=== PATIENT | male | born 1960 | race Caucasian/White ===

== ENCOUNTER 2017-05-12 12:47 | Inpatient (IN) | payer MEDICARE, MEDICAID ==
[2017-05-12 13:27] LABS: % BASOPHILS 1.2 % (0.0-2.0); % EOSINOPHILS 0.7 % (0.0-5.0); % LYMPHOCYTES 26.1 % (20.0-50.0); % MONOCYTES 5.8 % (2.0-10.0); % NEUTROPHILS 66.2 % (40.0-80.0); HEMATOCRIT 40.7 % (41.0-60); HEMOGLOBIN 13.5 gm/dL (12-16); MEAN CORPUSCULAR HEMOGLOBIN 27.1 pg (26.0-30.0); MEAN CORPUSCULAR HGB CONC 33.1 pg (28.0-36.0); NEUTROPHILE ABSOLUTE 4.8 Th/cmm (1.8-8.0); PLATELET COUNT 307 Th/cmm (150-400); RED BLOOD COUNT 4.96 Mil/cmm (4.30-5.70); RED CELL DISTRIBUTION WIDTH 13.9 % (11.5-20.0); WHITE BLOOD COUNT 7.3 Th/cmm (4.8-10.8)
--- NOTE | 2017-05-12 13:30 | ED Physician Chart ---
ED Chief Complaint/HPI - Patient Information Date Seen:: 05/12/17 Time Seen:: 13:15 Chief Complaint:: agitation History of Present Illness:: location: general quality: agitation severity: moderate duration: few days context: SNF pt from [facility] with progressive schizophrenia. today and last few days has had increasing agitation. did no assault a worker/ employee. but has become very agitated. mother who is at bedside reports that he has been steadily getting worse. she took him to psychiatrist and was told that pt should be in SNF at all times, that pt is not safe to be coming home to her house on weekends. at least for the next several weeks until pt is medicated properly. SNF RN called PCP who advised send pt to ER for medical eval and psychiatric treatment pending medical clearance. on arrival pt with no medical complaint. no chest pain, no shortness of breath. mod factors: none assoc s/s: none hx from EMS, mother. Allergies:: Allergies Allergy/AdvReac Type Severity Reaction Status Date / Time calcium Allergy Verified 05/12/17 13:01 chlorpromazine Allergy Verified 05/12/17 13:02 fluphenazine Allergy Verified 05/12/17 13:02 haloperidol [From Haldol] Allergy Verified 05/12/17 13:02 sulfamethoxazole Allergy Verified 05/12/17 13:00 [From Bactrim] trimethoprim [From Bactrim] Allergy Verified 05/12/17 13:00 Vitals:: Vital Signs - 8 hr 05/12/17 13:03 Temp 97.6 F HR 100 RR 16 BP 118/86 O2 Sat % 97 Historian:: EMS, Other Review:: Nurse's Note Reviewed ED Review of Systems - Review of Systems General/Constitutional: No fever, No edema Skin: No bruising Cardio Vascular: No chest pain, No orthopnea, No edema Pulmonary: No cough, No wheezing GI: No vomiting, No diarrhea Psychiatric: Prior psych history, No depression Allergic/Immuno: No angioedema Neurological: No seizure ED Past Medical History - Past Medical History Past Medical History: PUD/GERD Family History: None Social History: Smoker, No Alcohol, No Drug Use, Single, Care Facility Surgical History: None Psychiatricy History: Schizophrenia Medication: Reviewed Family Medical History - Family Member Mother History Unknown: Yes ED Physical Exam - Physical Examination General/Constitutional: Awake, Well-developed, well-nourished, Alert, No distress, GCS 15, Non-toxic appearing, Ambulatory Head: Atraumatic Eyes: Lids, conjuctiva normal, PERRL Skin: Nl inspection, No skin lesions ENMT: External ears, nose nl, Nasal exam nl, Lips, teeth, gums nl Neck: Nontender, No nuchal rigidity Respiratory: Nl effort/Exclusion, Clear to Auscultation, No Wheeze/Rhonchi/Rales Cardio Vascular: RRR, No murmur, gallop, rubs, NL S1 S2 GI: No tenderness/rebounding/guarding, Normal BS's, Nondistended, No McBurney tenderness : No CVA tenderness Extremities: No tenderness or effusion Neuro/Psych: Alert/oriented, Normal sensory exam, Normal motor strength Misc: Normal back, No paraspinal tenderness ED Labs/Radiology/EKG Results - Lab Results Results: Laboratory Tests 05/12/17 05/12/17 13:18 13:18 WBC 7.3 RBC 4.96 Hgb 13.5 Hct 40.7 L MCV 82.0 MCH 27.1 MCHC Differential 33.1 RDW 13.9 Plt Count 307 MPV 7.0 Neutrophils % 66.2 Lymphocytes % 26.1 Monocytes % 5.8 Eosinophils % 0.7 Basophils % 1.2 Sodium 133 L Potassium 3.4 L Chloride 101 Carbon Dioxide 29.0 Anion Gap 6.4 L BUN 12 Creatinine 0.7 Est GFR ( Amer) > 60.0 Est GFR (Non-Af Amer) > 60.0 BUN/Creatinine Ratio 17.1 Glucose 111 Calcium 9.2 Total Bilirubin 0.4 AST 18 ALT 13 Alkaline Phosphatase 58 Total Protein 7.3 Albumin 4.1 L Globulin 3.2 Albumin/Globulin Ratio 1.3 Triglycerides 106 Cholesterol 191 LDL Cholesterol Direct 111 HDL Cholesterol 57 - EKG Interpretations Comments:: EKG NSR 87 normal axis left anterior fascicular block minimal ST elevation, anterior leads no acute ST elevation no acute ST depression no ectopy pt with no chest pain and no SOB abnormal EKG ER READ ED Assessment - Assessment General Assessment: pt in stable condition while in ER ED Septic Shock - . Is Septic Shock (SBP<90, OR Lactate>4 mmol\L) present?: No - <6hrs of presentation: Vital Signs: Vital Signs - 8 hr 05/12/17 13:03 Temp 97.6 F HR 100 RR 16 BP 118/86 O2 Sat % 97 ED Reassessment (Disposition) - Reassessment Reassessment:: medical decision making pt in stable condition clinically, no acute emergency medical condition to be medically cleared for admission to [facility]. Dr. Person has examined the patient at bedside in addition to Dr. Riggins. Reassessment Condition:: Unchanged - Diagnosis Diagnosis:: medical clearance for [facility] progressive agitation, in baseline schizophrenic patient - Patient Disposition Discharge/Transfer:: Acute Care w/in this hosp Admitted to:: [facility] Admitting Medical Physician:: Wade Person Admitting Psych Physician:: Gerard Hernandez Time:: 15:00 Condition at Disposition:: Stable
[2017-05-12 13:45] LABS: ALB/GLOB RATIO 1.3 (1.0-1.8); ALKALINE PHOSPHATASE 58 U/L (34-104); ANION GAP 6.4 (7.0-16.0); BILIRUBIN,TOTAL 0.4 mg/dL (0.3-1.0); BUN - UREA NITROGEN 12 mg/dL (7-25); BUN/CREATININE RATIO 17.1; CALCIUM SERUM 9.2 mg/dL (8.6-10.3); CHLORIDE 101 mEq/L (98-107); CHOLESTEROL 191 mg/dL (<200); CREATININE - SERUM 0.7 mg/dL (0.7-1.3); GLUCOSE 111 mg/dL; POTASSIUM SERUM 3.4 mEq/L (3.5-5.1); SGOT 18 U/L (13-39); SGPT/ALT 13 U/L (7-52); SODIUM SERUM 133 mEq/L (136-145); TRIGLYCERIDES 106 mg/dL (<150)
[2017-05-12] MEDS ORDERED: Potassium Chloride 20 mEq ER Tab PO ONE ×2 (14:18→15:51)
[2017-05-12 14:27] LABS: URINE BILIRUBIN NEGATIVE (NEGATIVE); URINE BLOOD NEGATIVE (NEGATIVE); URINE GLUCOSE (UA) NEGATIVE (NEGATIVE); URINE KETONE NEGATIVE (NEGATIVE); URINE PROTEIN NEGATIVE (NEGATIVE); URINE UROBILINOGEN 0.2 E.U./dL (0.2 - 1.0)
--- NOTE | 2017-05-12 15:24 | History & Physical ---
ADMIT DATE: 05/12/2017 CHIEF COMPLAINT: Medical evaluation and clearance on patient admitted to inpatient psych. HISTORY OF PRESENT ILLNESS: This is a 56-year-old male with history of peptic ulcer disease, GERD, hypertension, seizure, hypercholesterolemia, was admitted from nursing facility as secondary to agitation. The patient was cleared medically from the ER. PAST MEDICAL HISTORY: As mentioned in history present illness. PAST SURGICAL HISTORY: Denies surgeries in the past. ALLERGIES: CALCIUM, CHLORPROMAZINE, FLUPHENAZINE, HALDOL. MEDICATIONS: Aspirin, Coreg, ____, Colace, fenofibrate, Keppra, omeprazole, MiraLax, and Metamucil. FAMILY HISTORY: Noncontributory. SOCIAL HISTORY: The patient smokes, drinks whenever it is available. No intravenous drug use. The patient is unemployed, disabled. Unmarried, no children. REVIEW OF SYSTEMS: GENERAL: Complains of not feeling ill. According to nursing staff, the patient has been very agitated and not taking medication. HEENT: No blurred vision. LUNGS: ____ COPD. The patient is a chronic smoker. HEART: The patient with hypertension. Denies coronary artery disease. ABDOMEN: No nausea, vomiting, pain. GENITOURINARY: The patient denies increased frequency or dysuria. NEUROLOGIC: No headache, seizure. The patient apparently with seizure, no syncope. PSYCHIATRIC: Stable. PHYSICAL EXAMINATION: VITAL SIGNS: Blood pressure 118/86, respirations 16, pulse 100, temperature 97.6. GENERAL: Elderly male, appears chronically ill. NECK: Supple. No mass. LUNGS: Equal breath sounds, few rhonchi. HEART: Regular rate and rhythm without appreciable murmurs. ABDOMEN: Soft, globular. EXTREMITIES: Positive excoriations. NEUROLOGIC: Limited. LABORATORY DATA: WBC 7.3, hemoglobin 13, platelets 207. Sodium 132, potassium 3.4, BUN 12, creatinine 0.7, blood sugar was 111. Albumin 4.1. ASSESSMENT AND PLAN: GERD, hypertension, peptic ulcer disease, schizoaffective disorder, tachycardia, hypokalemia, hyponatremia, mild protein-calorie malnutrition with low albumin, constipation, seizure, hypercholesterolemia, ____. We will correct electrolyte abnormalities. The patient to continue on antiepileptic medication. Continue proton pump inhibitor. Continue on laxative. Continue with current care. We will continue following with you. [facility]# [id number]
[2017-05-12 16:13] LABS: URINE COLOR YELLOW
[2017-05-12 16:16] LABS: URINE BACTERIA MODERATE /hpf (NONE SEEN); URINE EPITHELIAL CELLS NONE SEEN /lpf (FEW); URINE RBC NONE SEEN /hpf (0-5); URINE WBC NONE SEEN /hpf (0-5)
[2017-05-12 17:29] VITALS: BP 128/92
[2017-05-13] MEDS: POLYETHYLENE GLYCOL 3350 17 GM PACK PO SCH ×2 (09:17→17:52)
[2017-05-13] MEDS: Fish Oil 1,000 MG SGL PO SCH (09:20)
[2017-05-13] MEDS: Pantoprazole 40 mg EC Tab PO SCH (09:20)
--- NOTE | 2017-05-13 10:18 | Psychosocial Evaluation ---
DATE OF SERVICE: 05/13/2017 IDENTIFYING DATA: The patient is a 57-year-old male, resident of [facility]. Information obtained by directly interviewing the patient as well as reviewing the papers. JUSTIFICATION FOR HOSPITALIZATION: The patient is admitted here on a 5150 for being gravely disabled. CHIEF COMPLAINT: "I don't know, people are bothering me." HISTORY OF PRESENT ILLNESS: This is one of multiple psychiatric hospitalizations for this patient who has been diagnosed to have schizoaffective disorder and has been maintained on Clozaril. The patient also has a history of peptic ulcer disease, hypertension, seizure disorder, hypercholesterolemia and the patient has been out of control and has been testing the limits and getting easily agitated and getting into other people's rooms and hence the patient has been referred over here for further stabilization. The patient is admitted here on a 5150 for gravely disability. PAST PSYCHIATRIC HISTORY: Please refer to the above. MEDICAL HISTORY: Requested by Dr. Person. SUBSTANCE ABUSE HISTORY: None. PHYSICAL OR SEXUAL ABUSE HISTORY: None at this time. SOCIAL HISTORY: The patient is a resident of [facility]. Medical history is significant for hypercholesterolemia, seizure disorder and hypertension. ALLERGIES: The patient is reported to be allergic to CHLORPROMAZINE, FLUPHENAZINE and HALDOL. STRENGTH AND ASSETS: The patient is motivated. MENTAL STATUS EXAMINATION: The patient is a 57-year-old, looking his stated age, thin built, superficially cooperative. Eye contact is fair. Mood is irritable. Affect is constricted. The patient is pacing most of the time on the unit. Insight and judgment at this time are noted to be impaired. Impulse control is noted to be poor. The patient is paranoid and is responding to internal stimuli and the patient is not able to contract for safety at this time. The patient is getting easily upset when I am asking the questions. The patient denies any command hallucinations. No visual hallucinations are noted. The patient is alert and awake. Attention span and concentration are noted to be fair at this time. DIAGNOSTIC IMPRESSION: 1. Schizoaffective disorder. AXIS II: None. AXIS III: As per Dr. Person. IMMEDIATE TREATMENT PLAN: The patient is going to be observed on inpatient unit, provided with supportive psychotherapy. The patient is going to be closely monitored. Once stabilized, the patient is going to be discharged to self. While the patient is in the hospital, he is going to be continued on his Clozaril, which he has been taking at 100 mg at bedtime and patient is going to be looked into the need for the Depakote to contain mood swings. [facility]# [id number]
--- NOTE | 2017-05-13 12:14 | Internal Medicine Prog Note ---
Internal Medicine Subjective - Subjective Service Date: 05/13/17 Patient seen and examined:: with staff Patient is:: awake, verbal, ambulating, confused Per staff patient has:: tolerating meds Internal Medicine Objective - Results Result Diagrams: 05/12/17 13:18 05/12/17 13:18 Recent Labs: Laboratory Last Values WBC 7.3 Th/cmm (4.8-10.8) 05/12/17 13:18 RBC 4.96 Mil/cmm (4.30-5.70) 05/12/17 13:18 Hgb 13.5 gm/dL (12-16) 05/12/17 13:18 Hct 40.7 % (41.0-60) L 05/12/17 13:18 MCV 82.0 fl (80-99) 05/12/17 13:18 MCH 27.1 pg (26.0-30.0) 05/12/17 13:18 MCHC Differential 33.1 pg (28.0-36.0) 05/12/17 13:18 RDW 13.9 % (11.5-20.0) 05/12/17 13:18 Plt Count 307 Th/cmm (150-400) 05/12/17 13:18 MPV 7.0 fl 05/12/17 13:18 Neutrophils % 66.2 % (40.0-80.0) 05/12/17 13:18 Lymphocytes % 26.1 % (20.0-50.0) 05/12/17 13:18 Monocytes % 5.8 % (2.0-10.0) 05/12/17 13:18 Eosinophils % 0.7 % (0.0-5.0) 05/12/17 13:18 Basophils % 1.2 % (0.0-2.0) 05/12/17 13:18 Sodium 133 mEq/L (136-145) L 05/12/17 13:18 Potassium 3.4 mEq/L (3.5-5.1) L 05/12/17 13:18 Chloride 101 mEq/L (98-107) 05/12/17 13:18 Carbon Dioxide 29.0 mEq/L (21.0-31.0) 05/12/17 13:18 Anion Gap 6.4 (7.0-16.0) L 05/12/17 13:18 BUN 12 mg/dL (7-25) 05/12/17 13:18 Creatinine 0.7 mg/dL (0.7-1.3) 05/12/17 13:18 Est GFR ( Amer) > 60.0 ml/min (>90) 05/12/17 13:18 Est GFR (Non-Af Amer) > 60.0 ml/min 05/12/17 13:18 BUN/Creatinine Ratio 17.1 05/12/17 13:18 Glucose 111 mg/dL 05/12/17 13:18 Calcium 9.2 mg/dL (8.6-10.3) 05/12/17 13:18 Total Bilirubin 0.4 mg/dL (0.3-1.0) 05/12/17 13:18 AST 18 U/L (13-39) 05/12/17 13:18 ALT 13 U/L (7-52) 05/12/17 13:18 Alkaline Phosphatase 58 U/L (34-104) 05/12/17 13:18 Total Protein 7.3 gm/dL (6.0-8.3) 05/12/17 13:18 Albumin 4.1 gm/dL (4.2-5.5) L 05/12/17 13:18 Globulin 3.2 gm/dL 05/12/17 13:18 Albumin/Globulin Ratio 1.3 (1.0-1.8) 05/12/17 13:18 Triglycerides 106 mg/dL (<150) 05/12/17 13:18 Cholesterol 191 mg/dL (<200) 05/12/17 13:18 LDL Cholesterol Direct 111 mg/dL (75-193) 05/12/17 13:18 HDL Cholesterol 57 mg/dL (23-92) 05/12/17 13:18 TSH 0.64 uIU/ml (0.34-5.60) 05/12/17 13:18 Urine Source CLEAN C 05/12/17 14:00 Urine Color YELLOW 05/12/17 14:00 Urine Clarity HAZY (CLEAR) 05/12/17 14:00 Urine pH 8.0 (4.6 - 8.0) 05/12/17 14:00 Ur Specific [place] 1.010 (1.005-1.030) 05/12/17 14:00 Urine Protein NEGATIVE mg/dL (NEGATIVE) 05/12/17 14:00 Urine Glucose (UA) NEGATIVE mg/dL (NEGATIVE) 05/12/17 14:00 Urine Ketones NEGATIVE mg/dL (NEGATIVE) 05/12/17 14:00 Urine Blood NEGATIVE (NEGATIVE) 05/12/17 14:00 Urine Nitrate POSITIVE (NEGATIVE) H 05/12/17 14:00 Urine Bilirubin NEGATIVE (NEGATIVE) 05/12/17 14:00 Urine Urobilinogen 0.2 E.U./dL (0.2 - 1.0) 05/12/17 14:00 Ur Leukocyte Esterase NEGATIVE (NEGATIVE) 05/12/17 14:00 Urine RBC NONE SEEN /hpf (0-5) 05/12/17 14:00 Urine WBC NONE SEEN /hpf (0-5) 05/12/17 14:00 Ur Epithelial Cells NONE SEEN /lpf (FEW) 05/12/17 14:00 Urine Bacteria MODERATE /hpf (NONE SEEN) 05/12/17 14:00 - Physical Exam Vitals and I&O: Vital Signs Temp 98.2 F 05/13/17 06:23 Pulse 88 05/13/17 09:20 Resp 20 05/13/17 06:23 BP 140/77 05/13/17 09:20 Pulse Ox 100 05/13/17 06:23 Intake & Output 05/12/17 05/13/17 05/13/17 18:59 06:59 18:59 Intake Total 480 Balance 480 Intake: Oral 480 Other: # Voids 3 # Bowel Movements 0 Active Medications: Current Medications Aspirin (Ecotrin) 81 mg PO DAILY [facility] Stop: 07/12/17 08:59 Last Admin: 05/13/17 09:19 Dose: 81 mg Carvedilol (Coreg) 3.125 mg PO BID [facility] Stop: 07/11/17 16:59 Last Admin: 05/13/17 09:20 Dose: 3.125 mg Clozapine (Clozaril) 400 mg PO [facility] PRN Reason: Protocol Stop: 07/11/17 20:59 Docusate Sodium (Colace) 200 mg PO BID [facility] Stop: 07/11/17 16:59 Last Admin: 05/13/17 09:10 Dose: 200 mg Fenofibrate (Tricor) 134 mg PO [facility] Stop: 07/12/17 20:59 Fish Oil ([place] 3) 1,000 mg PO DAILY [facility] Stop: 07/12/17 08:59 Last Admin: 05/13/17 09:20 Dose: 1,000 mg Levetiracetam (Keppra) 500 mg PO Q12H [facility] Stop: 07/11/17 14:29 Last Admin: 05/12/17 15:53 Dose: 500 mg Pantoprazole Sodium (Protonix) 40 mg PO DAILY [facility] Stop: 07/12/17 08:59 Last Admin: 05/13/17 09:20 Dose: 40 mg Polyethylene Glycol (Miralax) 17 gm PO BID [facility] Stop: 07/11/17 16:59 Last Admin: 05/13/17 09:17 Dose: 17 gm Psyllium Hydrophilic Mucilloid (Metamucil) 1 pkt PO BID [facility] Stop: 07/11/17 16:59 Last Admin: 05/13/17 09:17 Dose: 1 pkt General: alert HEENT: NC/AT, PERRLA Neck: Supple Lungs: CTAB Cardiovascular: RRR, Normal S1, Normal S2, without murmur Abdomen: soft, non-tender, non-distended, positive bowel sound Extremities: excoriation Neurological: alert, other Internal Medicine Assmt/Plan - Assessment Assessment: GERD HTN PUD SCHIZOAFFECTIVE DISORDER TACHYCARDIA HYPOKALEMIA HYPONATREMIA MILD PROTEIN CALORIE MALNUTRITION WITH LOW ALBUMIN CONSTIPATION SEIZURE HYPERCHOLESTEREMIA - Plan Plan: seizure precautions fall precautions continue ppi continue current plan of care
[2017-05-13] MEDS: Fenofibrate, Micronized 134 mg Cap PO SCH (20:23)
[2017-05-14] MEDS: Fish Oil 1,000 MG SGL PO SCH (08:42)
[2017-05-14] MEDS: Pantoprazole 40 mg EC Tab PO SCH (08:43)
[2017-05-14] MEDS: POLYETHYLENE GLYCOL 3350 17 GM PACK PO SCH ×2 (08:44→18:00)
--- NOTE | 2017-05-14 12:18 | Internal Medicine Prog Note ---
Internal Medicine Subjective - Subjective Service Date: 05/14/17 Patient is:: awake, verbal, ambulating, confused Per staff patient has:: tolerating meds Internal Medicine Objective - Results Result Diagrams: 05/12/17 13:18 05/12/17 13:18 Recent Labs: Laboratory Last Values WBC 7.3 Th/cmm (4.8-10.8) 05/12/17 13:18 RBC 4.96 Mil/cmm (4.30-5.70) 05/12/17 13:18 Hgb 13.5 gm/dL (12-16) 05/12/17 13:18 Hct 40.7 % (41.0-60) L 05/12/17 13:18 MCV 82.0 fl (80-99) 05/12/17 13:18 MCH 27.1 pg (26.0-30.0) 05/12/17 13:18 MCHC Differential 33.1 pg (28.0-36.0) 05/12/17 13:18 RDW 13.9 % (11.5-20.0) 05/12/17 13:18 Plt Count 307 Th/cmm (150-400) 05/12/17 13:18 MPV 7.0 fl 05/12/17 13:18 Neutrophils % 66.2 % (40.0-80.0) 05/12/17 13:18 Lymphocytes % 26.1 % (20.0-50.0) 05/12/17 13:18 Monocytes % 5.8 % (2.0-10.0) 05/12/17 13:18 Eosinophils % 0.7 % (0.0-5.0) 05/12/17 13:18 Basophils % 1.2 % (0.0-2.0) 05/12/17 13:18 Sodium 133 mEq/L (136-145) L 05/12/17 13:18 Potassium 3.4 mEq/L (3.5-5.1) L 05/12/17 13:18 Chloride 101 mEq/L (98-107) 05/12/17 13:18 Carbon Dioxide 29.0 mEq/L (21.0-31.0) 05/12/17 13:18 Anion Gap 6.4 (7.0-16.0) L 05/12/17 13:18 BUN 12 mg/dL (7-25) 05/12/17 13:18 Creatinine 0.7 mg/dL (0.7-1.3) 05/12/17 13:18 Est GFR ( Amer) > 60.0 ml/min (>90) 05/12/17 13:18 Est GFR (Non-Af Amer) > 60.0 ml/min 05/12/17 13:18 BUN/Creatinine Ratio 17.1 05/12/17 13:18 Glucose 111 mg/dL 05/12/17 13:18 Calcium 9.2 mg/dL (8.6-10.3) 05/12/17 13:18 Total Bilirubin 0.4 mg/dL (0.3-1.0) 05/12/17 13:18 AST 18 U/L (13-39) 05/12/17 13:18 ALT 13 U/L (7-52) 05/12/17 13:18 Alkaline Phosphatase 58 U/L (34-104) 05/12/17 13:18 Total Protein 7.3 gm/dL (6.0-8.3) 05/12/17 13:18 Albumin 4.1 gm/dL (4.2-5.5) L 05/12/17 13:18 Globulin 3.2 gm/dL 05/12/17 13:18 Albumin/Globulin Ratio 1.3 (1.0-1.8) 05/12/17 13:18 Triglycerides 106 mg/dL (<150) 05/12/17 13:18 Cholesterol 191 mg/dL (<200) 05/12/17 13:18 LDL Cholesterol Direct 111 mg/dL (75-193) 05/12/17 13:18 HDL Cholesterol 57 mg/dL (23-92) 05/12/17 13:18 TSH 0.64 uIU/ml (0.34-5.60) 05/12/17 13:18 Urine Source CLEAN C 05/12/17 14:00 Urine Color YELLOW 05/12/17 14:00 Urine Clarity HAZY (CLEAR) 05/12/17 14:00 Urine pH 8.0 (4.6 - 8.0) 05/12/17 14:00 Ur Specific [place] 1.010 (1.005-1.030) 05/12/17 14:00 Urine Protein NEGATIVE mg/dL (NEGATIVE) 05/12/17 14:00 Urine Glucose (UA) NEGATIVE mg/dL (NEGATIVE) 05/12/17 14:00 Urine Ketones NEGATIVE mg/dL (NEGATIVE) 05/12/17 14:00 Urine Blood NEGATIVE (NEGATIVE) 05/12/17 14:00 Urine Nitrate POSITIVE (NEGATIVE) H 05/12/17 14:00 Urine Bilirubin NEGATIVE (NEGATIVE) 05/12/17 14:00 Urine Urobilinogen 0.2 E.U./dL (0.2 - 1.0) 05/12/17 14:00 Ur Leukocyte Esterase NEGATIVE (NEGATIVE) 05/12/17 14:00 Urine RBC NONE SEEN /hpf (0-5) 05/12/17 14:00 Urine WBC NONE SEEN /hpf (0-5) 05/12/17 14:00 Ur Epithelial Cells NONE SEEN /lpf (FEW) 05/12/17 14:00 Urine Bacteria MODERATE /hpf (NONE SEEN) 05/12/17 14:00 RPR NONREACTIVE (NONREACTIVE) 05/12/17 13:18 - Physical Exam Vitals and I&O: Vital Signs Temp 98.5 F 05/14/17 07:04 Pulse 61 05/14/17 08:43 Resp 20 05/14/17 07:04 BP 122/79 05/14/17 08:43 Pulse Ox 100 05/14/17 07:04 Intake & Output 05/13/17 05/14/17 05/14/17 18:59 06:59 18:59 Intake Total 2400 120 Balance 2400 120 Intake: Oral 2400 120 Other: # Voids 4 3 # Bowel Movements 0 Active Medications: Current Medications Aspirin (Ecotrin) 81 mg PO DAILY [facility] Stop: 07/12/17 08:59 Last Admin: 05/14/17 08:43 Dose: 81 mg Carvedilol (Coreg) 3.125 mg PO BID [facility] Stop: 07/11/17 16:59 Last Admin: 05/14/17 08:43 Dose: 3.125 mg Clozapine (Clozaril) 400 mg PO [facility] PRN Reason: Protocol Stop: 07/11/17 20:59 Last Admin: 05/13/17 20:23 Dose: 400 mg Docusate Sodium (Colace) 200 mg PO BID [facility] Stop: 07/11/17 16:59 Last Admin: 05/14/17 08:43 Dose: 200 mg Fenofibrate (Tricor) 134 mg PO HS [facility] Stop: 07/12/17 20:59 Last Admin: 05/13/17 20:23 Dose: 134 mg Fish Oil ([place] 3) 1,000 mg PO DAILY [facility] Stop: 07/12/17 08:59 Last Admin: 05/14/17 08:42 Dose: 1,000 mg Levetiracetam (Keppra) 500 mg PO Q12H [facility] Stop: 07/11/17 14:29 Last Admin: 05/13/17 17:52 Dose: Not Given Lorazepam (Ativan) 1 mg PO Q6HR PRN; Protocol PRN Reason: Anxiety Stop: 07/12/17 13:15 Last Admin: 05/13/17 21:40 Dose: 1 mg Pantoprazole Sodium (Protonix) 40 mg PO DAILY [facility] Stop: 07/12/17 08:59 Last Admin: 05/14/17 08:43 Dose: 40 mg Polyethylene Glycol (Miralax) 17 gm PO BID [facility] Stop: 07/11/17 16:59 Last Admin: 05/14/17 08:44 Dose: 17 gm Psyllium Hydrophilic Mucilloid (Metamucil) 1 pkt PO BID [facility] Stop: 07/11/17 16:59 Last Admin: 05/14/17 08:44 Dose: 1 pkt Zolpidem Tartrate (Ambien) 5 mg PO HS PRN PRN Reason: Insomnia Stop: 07/12/17 17:54 General: alert HEENT: NC/AT, PERRLA Neck: Supple Lungs: CTAB Cardiovascular: RRR, Normal S1, Normal S2, without murmur Abdomen: soft, non-tender, non-distended, positive bowel sound Extremities: excoriation Neurological: alert, other Internal Medicine Assmt/Plan - Assessment Assessment: GERD HTN PUD SCHIZOAFFECTIVE DISORDER TACHYCARDIA HYPOKALEMIA HYPONATREMIA MILD PROTEIN CALORIE MALNUTRITION WITH LOW ALBUMIN CONSTIPATION SEIZURE HYPERCHOLESTEREMIA - Plan Plan: seizure precautions fall precautions continue ppi continue current plan of care
--- NOTE | 2017-05-14 20:14 | Progress Notes ---
DATE: 05/14/2017 SUBJECTIVE: Staff was spoken to. The patient is interviewed. Mood is noted to be irritable. Affect is constricted. The patient is pacing on the unit. Insight and judgment at this time are noted to be still impaired. Continues to be very irritable, angry, and agitated. Needs to be redirected constantly. The patient is currently on 400 mg of the Clozaril and has been able to tolerate the medication. ASSESSMENT: The patient is still grossly psychotic. PLAN: To continue the patient with the current medications. I encouraged the patient to verbalize the concerns rather than to act out. JOB# [id number]
[2017-05-14] MEDS: Fenofibrate, Micronized 134 mg Cap PO SCH (21:13)
[2017-05-15] MEDS: POLYETHYLENE GLYCOL 3350 17 GM PACK PO SCH ×2 (08:55→16:23)
[2017-05-15] MEDS: Pantoprazole 40 mg EC Tab PO SCH (08:55)
[2017-05-15] MEDS: Fish Oil 1,000 MG SGL PO SCH (08:55)
--- NOTE | 2017-05-15 12:45 | Internal Medicine Prog Note ---
Internal Medicine Subjective - Subjective Service Date: 05/15/17 Patient is:: awake, verbal, ambulating, confused Per staff patient has:: tolerating meds Internal Medicine Objective - Results Result Diagrams: 05/12/17 13:18 05/12/17 13:18 Recent Labs: Laboratory Last Values WBC 7.3 Th/cmm (4.8-10.8) 05/12/17 13:18 RBC 4.96 Mil/cmm (4.30-5.70) 05/12/17 13:18 Hgb 13.5 gm/dL (12-16) 05/12/17 13:18 Hct 40.7 % (41.0-60) L 05/12/17 13:18 MCV 82.0 fl (80-99) 05/12/17 13:18 MCH 27.1 pg (26.0-30.0) 05/12/17 13:18 MCHC Differential 33.1 pg (28.0-36.0) 05/12/17 13:18 RDW 13.9 % (11.5-20.0) 05/12/17 13:18 Plt Count 307 Th/cmm (150-400) 05/12/17 13:18 MPV 7.0 fl 05/12/17 13:18 Neutrophils % 66.2 % (40.0-80.0) 05/12/17 13:18 Lymphocytes % 26.1 % (20.0-50.0) 05/12/17 13:18 Monocytes % 5.8 % (2.0-10.0) 05/12/17 13:18 Eosinophils % 0.7 % (0.0-5.0) 05/12/17 13:18 Basophils % 1.2 % (0.0-2.0) 05/12/17 13:18 Sodium 133 mEq/L (136-145) L 05/12/17 13:18 Potassium 3.4 mEq/L (3.5-5.1) L 05/12/17 13:18 Chloride 101 mEq/L (98-107) 05/12/17 13:18 Carbon Dioxide 29.0 mEq/L (21.0-31.0) 05/12/17 13:18 Anion Gap 6.4 (7.0-16.0) L 05/12/17 13:18 BUN 12 mg/dL (7-25) 05/12/17 13:18 Creatinine 0.7 mg/dL (0.7-1.3) 05/12/17 13:18 Est GFR ( Amer) > 60.0 ml/min (>90) 05/12/17 13:18 Est GFR (Non-Af Amer) > 60.0 ml/min 05/12/17 13:18 BUN/Creatinine Ratio 17.1 05/12/17 13:18 Glucose 111 mg/dL 05/12/17 13:18 Calcium 9.2 mg/dL (8.6-10.3) 05/12/17 13:18 Total Bilirubin 0.4 mg/dL (0.3-1.0) 05/12/17 13:18 AST 18 U/L (13-39) 05/12/17 13:18 ALT 13 U/L (7-52) 05/12/17 13:18 Alkaline Phosphatase 58 U/L (34-104) 05/12/17 13:18 Total Protein 7.3 gm/dL (6.0-8.3) 05/12/17 13:18 Albumin 4.1 gm/dL (4.2-5.5) L 05/12/17 13:18 Globulin 3.2 gm/dL 05/12/17 13:18 Albumin/Globulin Ratio 1.3 (1.0-1.8) 05/12/17 13:18 Triglycerides 106 mg/dL (<150) 05/12/17 13:18 Cholesterol 191 mg/dL (<200) 05/12/17 13:18 LDL Cholesterol Direct 111 mg/dL (75-193) 05/12/17 13:18 HDL Cholesterol 57 mg/dL (23-92) 05/12/17 13:18 TSH 0.64 uIU/ml (0.34-5.60) 05/12/17 13:18 Urine Source CLEAN C 05/12/17 14:00 Urine Color YELLOW 05/12/17 14:00 Urine Clarity HAZY (CLEAR) 05/12/17 14:00 Urine pH 8.0 (4.6 - 8.0) 05/12/17 14:00 Ur Specific [place] 1.010 (1.005-1.030) 05/12/17 14:00 Urine Protein NEGATIVE mg/dL (NEGATIVE) 05/12/17 14:00 Urine Glucose (UA) NEGATIVE mg/dL (NEGATIVE) 05/12/17 14:00 Urine Ketones NEGATIVE mg/dL (NEGATIVE) 05/12/17 14:00 Urine Blood NEGATIVE (NEGATIVE) 05/12/17 14:00 Urine Nitrate POSITIVE (NEGATIVE) H 05/12/17 14:00 Urine Bilirubin NEGATIVE (NEGATIVE) 05/12/17 14:00 Urine Urobilinogen 0.2 E.U./dL (0.2 - 1.0) 05/12/17 14:00 Ur Leukocyte Esterase NEGATIVE (NEGATIVE) 05/12/17 14:00 Urine RBC NONE SEEN /hpf (0-5) 05/12/17 14:00 Urine WBC NONE SEEN /hpf (0-5) 05/12/17 14:00 Ur Epithelial Cells NONE SEEN /lpf (FEW) 05/12/17 14:00 Urine Bacteria MODERATE /hpf (NONE SEEN) 05/12/17 14:00 RPR NONREACTIVE (NONREACTIVE) 05/12/17 13:18 - Physical Exam Vitals and I&O: Vital Signs Temp 97.5 F 05/15/17 06:47 Pulse 82 05/15/17 08:56 Resp 19 05/15/17 06:47 BP 111/67 05/15/17 08:56 Pulse Ox 98 05/15/17 06:47 Intake & Output 05/14/17 05/15/17 05/15/17 18:59 06:59 18:59 Intake Total 3720 120 Balance 3720 120 Intake: Oral 3720 120 Other: # Voids 4 3 # Bowel Movements 0 Active Medications: Current Medications Aspirin (Ecotrin) 81 mg PO DAILY [facility] Stop: 07/12/17 08:59 Last Admin: 05/15/17 08:55 Dose: 81 mg Carvedilol (Coreg) 3.125 mg PO BID [facility] Stop: 07/11/17 16:59 Last Admin: 05/15/17 08:56 Dose: 3.125 mg Clozapine (Clozaril) 400 mg PO [facility] PRN Reason: Protocol Stop: 07/11/17 20:59 Last Admin: 05/14/17 21:13 Dose: 400 mg Docusate Sodium (Colace) 200 mg PO BID [facility] Stop: 07/11/17 16:59 Last Admin: 05/15/17 08:55 Dose: 200 mg Fenofibrate (Tricor) 134 mg PO HS [facility] Stop: 07/12/17 20:59 Last Admin: 05/14/17 21:13 Dose: 134 mg Fish Oil ([place] 3) 1,000 mg PO DAILY [facility] Stop: 07/12/17 08:59 Last Admin: 05/15/17 08:55 Dose: 1,000 mg Levetiracetam (Keppra) 500 mg PO Q12H [facility] Stop: 07/14/17 08:59 Last Admin: 05/15/17 10:53 Dose: Not Given Lorazepam (Ativan) 1 mg PO Q6HR PRN; Protocol PRN Reason: Anxiety Stop: 07/12/17 13:15 Last Admin: 05/14/17 14:42 Dose: 1 mg Pantoprazole Sodium (Protonix) 40 mg PO DAILY [facility] Stop: 07/12/17 08:59 Last Admin: 05/15/17 08:55 Dose: 40 mg Polyethylene Glycol (Miralax) 17 gm PO BID [facility] Stop: 07/11/17 16:59 Last Admin: 05/15/17 08:55 Dose: 17 gm Psyllium Hydrophilic Mucilloid (Metamucil) 1 pkt PO BID [facility] Stop: 07/11/17 16:59 Last Admin: 05/15/17 08:55 Dose: 1 pkt Zolpidem Tartrate (Ambien) 5 mg PO HS PRN PRN Reason: Insomnia Stop: 07/12/17 17:54 Last Admin: 05/14/17 21:13 Dose: 5 mg General: alert HEENT: NC/AT, PERRLA Neck: Supple Lungs: CTAB Cardiovascular: RRR, Normal S1, Normal S2, without murmur Abdomen: soft, non-tender, non-distended, positive bowel sound Extremities: excoriation Neurological: alert, other Internal Medicine Assmt/Plan - Assessment Assessment: GERD HTN PUD SCHIZOAFFECTIVE DISORDER TACHYCARDIA HYPOKALEMIA HYPONATREMIA MILD PROTEIN CALORIE MALNUTRITION WITH LOW ALBUMIN CONSTIPATION SEIZURE HYPERCHOLESTEREMIA - Plan Plan: seizure precautions fall precautions continue ppi continue current plan of care
[2017-05-15] MEDS: Fenofibrate, Micronized 134 mg Cap PO SCH (20:59)
--- NOTE | 2017-05-15 23:25 | Progress Notes ---
DATE: 05/15/2017 PSYCHIATRIC PROGRESS NOTE SUBJECTIVE: Staff was spoken to. The patient is interviewed. Mood is noted to be irritable. Affect is constricted. The patient is getting into others' rooms and has been trying to the clog the toilets. The patient's behavior is very disruptive at this time. Insight and judgment at this time are noted to be still impaired. Impulse control is noted to be poor. The patient has not been able to contract for safety. ASSESSMENT: The patient is still grossly psychotic. The patient is going to be closely monitored and encouraged to participate in the groups and verbalize the concerns. JOB# [id number]
[2017-05-16] MEDS: Fish Oil 1,000 MG SGL PO SCH (08:22)
[2017-05-16] MEDS: POLYETHYLENE GLYCOL 3350 17 GM PACK PO SCH ×2 (08:22→16:26)
[2017-05-16] MEDS: Pantoprazole 40 mg EC Tab PO SCH (08:23)
--- NOTE | 2017-05-16 13:27 | Internal Medicine Prog Note ---
Internal Medicine Subjective - Subjective Service Date: 05/16/17 Patient is:: awake, verbal, ambulating, confused Per staff patient has:: tolerating meds Internal Medicine Objective - Results Result Diagrams: 05/12/17 13:18 05/12/17 13:18 Recent Labs: Laboratory Last Values WBC 7.3 Th/cmm (4.8-10.8) 05/12/17 13:18 RBC 4.96 Mil/cmm (4.30-5.70) 05/12/17 13:18 Hgb 13.5 gm/dL (12-16) 05/12/17 13:18 Hct 40.7 % (41.0-60) L 05/12/17 13:18 MCV 82.0 fl (80-99) 05/12/17 13:18 MCH 27.1 pg (26.0-30.0) 05/12/17 13:18 MCHC Differential 33.1 pg (28.0-36.0) 05/12/17 13:18 RDW 13.9 % (11.5-20.0) 05/12/17 13:18 Plt Count 307 Th/cmm (150-400) 05/12/17 13:18 MPV 7.0 fl 05/12/17 13:18 Neutrophils % 66.2 % (40.0-80.0) 05/12/17 13:18 Lymphocytes % 26.1 % (20.0-50.0) 05/12/17 13:18 Monocytes % 5.8 % (2.0-10.0) 05/12/17 13:18 Eosinophils % 0.7 % (0.0-5.0) 05/12/17 13:18 Basophils % 1.2 % (0.0-2.0) 05/12/17 13:18 Sodium 133 mEq/L (136-145) L 05/12/17 13:18 Potassium 3.4 mEq/L (3.5-5.1) L 05/12/17 13:18 Chloride 101 mEq/L (98-107) 05/12/17 13:18 Carbon Dioxide 29.0 mEq/L (21.0-31.0) 05/12/17 13:18 Anion Gap 6.4 (7.0-16.0) L 05/12/17 13:18 BUN 12 mg/dL (7-25) 05/12/17 13:18 Creatinine 0.7 mg/dL (0.7-1.3) 05/12/17 13:18 Est GFR ( Amer) > 60.0 ml/min (>90) 05/12/17 13:18 Est GFR (Non-Af Amer) > 60.0 ml/min 05/12/17 13:18 BUN/Creatinine Ratio 17.1 05/12/17 13:18 Glucose 111 mg/dL 05/12/17 13:18 Calcium 9.2 mg/dL (8.6-10.3) 05/12/17 13:18 Total Bilirubin 0.4 mg/dL (0.3-1.0) 05/12/17 13:18 AST 18 U/L (13-39) 05/12/17 13:18 ALT 13 U/L (7-52) 05/12/17 13:18 Alkaline Phosphatase 58 U/L (34-104) 05/12/17 13:18 Total Protein 7.3 gm/dL (6.0-8.3) 05/12/17 13:18 Albumin 4.1 gm/dL (4.2-5.5) L 05/12/17 13:18 Globulin 3.2 gm/dL 05/12/17 13:18 Albumin/Globulin Ratio 1.3 (1.0-1.8) 05/12/17 13:18 Triglycerides 106 mg/dL (<150) 05/12/17 13:18 Cholesterol 191 mg/dL (<200) 05/12/17 13:18 LDL Cholesterol Direct 111 mg/dL (75-193) 05/12/17 13:18 HDL Cholesterol 57 mg/dL (23-92) 05/12/17 13:18 TSH 0.64 uIU/ml (0.34-5.60) 05/12/17 13:18 Urine Source CLEAN C 05/12/17 14:00 Urine Color YELLOW 05/12/17 14:00 Urine Clarity HAZY (CLEAR) 05/12/17 14:00 Urine pH 8.0 (4.6 - 8.0) 05/12/17 14:00 Ur Specific [place] 1.010 (1.005-1.030) 05/12/17 14:00 Urine Protein NEGATIVE mg/dL (NEGATIVE) 05/12/17 14:00 Urine Glucose (UA) NEGATIVE mg/dL (NEGATIVE) 05/12/17 14:00 Urine Ketones NEGATIVE mg/dL (NEGATIVE) 05/12/17 14:00 Urine Blood NEGATIVE (NEGATIVE) 05/12/17 14:00 Urine Nitrate POSITIVE (NEGATIVE) H 05/12/17 14:00 Urine Bilirubin NEGATIVE (NEGATIVE) 05/12/17 14:00 Urine Urobilinogen 0.2 E.U./dL (0.2 - 1.0) 05/12/17 14:00 Ur Leukocyte Esterase NEGATIVE (NEGATIVE) 05/12/17 14:00 Urine RBC NONE SEEN /hpf (0-5) 05/12/17 14:00 Urine WBC NONE SEEN /hpf (0-5) 05/12/17 14:00 Ur Epithelial Cells NONE SEEN /lpf (FEW) 05/12/17 14:00 Urine Bacteria MODERATE /hpf (NONE SEEN) 05/12/17 14:00 RPR NONREACTIVE (NONREACTIVE) 05/12/17 13:18 - Physical Exam Vitals and I&O: Vital Signs Temp 98.2 F 05/16/17 06:42 Pulse 79 05/16/17 08:23 Resp 20 05/16/17 06:42 BP 120/77 05/16/17 08:23 Pulse Ox 98 05/16/17 06:42 Intake & Output 05/15/17 05/16/17 05/16/17 18:59 06:59 18:59 Intake Total 1000 120 Balance 1000 120 Intake: Oral 1000 120 Other: # Voids 3 3 Active Medications: Current Medications Aspirin (Ecotrin) 81 mg PO DAILY [facility] Stop: 07/12/17 08:59 Last Admin: 05/16/17 08:23 Dose: 81 mg Carvedilol (Coreg) 3.125 mg PO BID [facility] Stop: 07/11/17 16:59 Last Admin: 05/16/17 08:23 Dose: 3.125 mg Clozapine (Clozaril) 400 mg PO HS [facility] PRN Reason: Protocol Stop: 07/11/17 20:59 Last Admin: 05/15/17 20:58 Dose: 400 mg Docusate Sodium (Colace) 200 mg PO BID [facility] Stop: 07/11/17 16:59 Last Admin: 05/16/17 08:22 Dose: 200 mg Fenofibrate (Tricor) 134 mg PO HS [facility] Stop: 07/12/17 20:59 Last Admin: 05/15/17 20:59 Dose: 134 mg Fish Oil ([place] 3) 1,000 mg PO DAILY [facility] Stop: 07/12/17 08:59 Last Admin: 05/16/17 08:22 Dose: 1,000 mg Levetiracetam (Keppra) 500 mg PO Q12H [facility] Stop: 07/14/17 08:59 Last Admin: 05/16/17 08:23 Dose: 500 mg Lorazepam (Ativan) 1 mg PO Q6HR PRN; Protocol PRN Reason: Anxiety Stop: 07/12/17 13:15 Last Admin: 05/14/17 14:42 Dose: 1 mg Pantoprazole Sodium (Protonix) 40 mg PO DAILY [facility] Stop: 07/12/17 08:59 Last Admin: 05/16/17 08:23 Dose: 40 mg Polyethylene Glycol (Miralax) 17 gm PO BID [facility] Stop: 07/11/17 16:59 Last Admin: 05/16/17 08:22 Dose: 17 gm Psyllium Hydrophilic Mucilloid (Metamucil) 1 pkt PO BID [facility] Stop: 07/11/17 16:59 Last Admin: 05/16/17 08:22 Dose: 1 pkt Zolpidem Tartrate (Ambien) 5 mg PO HS PRN PRN Reason: Insomnia Stop: 07/12/17 17:54 Last Admin: 05/14/17 21:13 Dose: 5 mg General: alert HEENT: NC/AT, PERRLA Neck: Supple Lungs: CTAB Cardiovascular: RRR, Normal S1, Normal S2, without murmur Abdomen: soft, non-tender, non-distended, positive bowel sound Extremities: excoriation Neurological: alert, other Internal Medicine Assmt/Plan - Assessment Assessment: GERD HTN PUD SCHIZOAFFECTIVE DISORDER TACHYCARDIA HYPOKALEMIA HYPONATREMIA MILD PROTEIN CALORIE MALNUTRITION WITH LOW ALBUMIN CONSTIPATION SEIZURE HYPERCHOLESTEREMIA - Plan Plan: seizure precautions fall precautions continue ppi continue current plan of care Nutritional Asmnt/Malnutr-PDOC - Dietary Evaluation Malnutrition Findings (Please click <Entered> for more info): Nutritional Asmnt/Malnutrition Start: 05/16/17 09: 17 Text: Status: Active Freq: Document 05/16/17 09:17 [email or web address] (Rec: 05/16/17 09:31 [email or web address]- [email or web address]) Nutritional Asmnt/Malnutrition Patient General Information Nutritional Screening Moderate Risk Diagnosis Schizophrenia, agitation, psychosis Pertinent Medical Hx/Surgical Hx Cirrhosis of liver, GERD, intellectual disabilities, abnormal posture, anxiety Subjective Information Patient was admitted from SNF Current Diet Order/ Nutrition Support Mechanical soft chopped APRIL Pertinent Medications colace, omega 3, protonix, miralax, metamucil Pertinent Labs 05/12: Na 133, K 3.4 Nutritional Hx/Data Height 5 ft 8 in Height (Calculated Centimeters) 172.7 Current Weight (lbs) 140 lb Weight (Calculated Kilograms) 63.5 Weight (Calculated Grams) 72591.9 [place] Body Weight 154 % [place] Body Weight 90 Body Mass Index (BMI) 21.2 Weight Status Approriate GI Symptoms Last BM Prior to admission Food Allergies No Cultural/Ethnic/Taoism Belief None noted Skin Integrity/Comment: Nima 20, intact Current %PO Fair (50-74%) Estimated Nutritional Goals BEE in Kcals: Using Current wt Calories/Kcals/Kg 25-30kcal/kg Kcals Calculated 6922-4565 kcal/day Protein: Using Current wt Protein g/k.8-1 gm/kg Protein Calculated 50-65 gm/day Fluid: ml 8960-1972 ml/day (1 ml/kcal) Nutritional Problem 1. Problem Problem Altered nutrition related lab values related to Etiology electrolyte imbalance aeb Signs/Symptoms: K 3.4, Na 133 Intervention/Recommendation Comments 1. Continue Mechanical soft, chopped, APRIL diet as tolerated by patient. 2. MD to consider fluid restriction if Na does not normalize. 3. Increase intake of potassium rich foods. Expected Outcomes/Goals Expected Outcomes/Goals Nutrition related labs normalize, weight stable, oral intake to meet > 75% of nutrient needs.
[2017-05-16] MEDS: Fenofibrate, Micronized 134 mg Cap PO SCH (21:04)
[2017-05-17] MEDS: Fish Oil 1,000 MG SGL PO SCH (09:33)
[2017-05-17] MEDS: POLYETHYLENE GLYCOL 3350 17 GM PACK PO SCH ×2 (09:33→16:14)
[2017-05-17] MEDS: Pantoprazole 40 mg EC Tab PO SCH (09:33)
--- NOTE | 2017-05-17 16:03 | Internal Medicine Prog Note ---
Internal Medicine Subjective - Subjective Service Date: 05/17/17 Patient is:: awake, verbal, ambulating, confused Per staff patient has:: tolerating meds Internal Medicine Objective - Results Result Diagrams: 05/12/17 13:18 05/12/17 13:18 Recent Labs: Laboratory Last Values WBC 7.3 Th/cmm (4.8-10.8) 05/12/17 13:18 RBC 4.96 Mil/cmm (4.30-5.70) 05/12/17 13:18 Hgb 13.5 gm/dL (12-16) 05/12/17 13:18 Hct 40.7 % (41.0-60) L 05/12/17 13:18 MCV 82.0 fl (80-99) 05/12/17 13:18 MCH 27.1 pg (26.0-30.0) 05/12/17 13:18 MCHC Differential 33.1 pg (28.0-36.0) 05/12/17 13:18 RDW 13.9 % (11.5-20.0) 05/12/17 13:18 Plt Count 307 Th/cmm (150-400) 05/12/17 13:18 MPV 7.0 fl 05/12/17 13:18 Neutrophils % 66.2 % (40.0-80.0) 05/12/17 13:18 Lymphocytes % 26.1 % (20.0-50.0) 05/12/17 13:18 Monocytes % 5.8 % (2.0-10.0) 05/12/17 13:18 Eosinophils % 0.7 % (0.0-5.0) 05/12/17 13:18 Basophils % 1.2 % (0.0-2.0) 05/12/17 13:18 Sodium 133 mEq/L (136-145) L 05/12/17 13:18 Potassium 3.4 mEq/L (3.5-5.1) L 05/12/17 13:18 Chloride 101 mEq/L (98-107) 05/12/17 13:18 Carbon Dioxide 29.0 mEq/L (21.0-31.0) 05/12/17 13:18 Anion Gap 6.4 (7.0-16.0) L 05/12/17 13:18 BUN 12 mg/dL (7-25) 05/12/17 13:18 Creatinine 0.7 mg/dL (0.7-1.3) 05/12/17 13:18 Est GFR ( Amer) > 60.0 ml/min (>90) 05/12/17 13:18 Est GFR (Non-Af Amer) > 60.0 ml/min 05/12/17 13:18 BUN/Creatinine Ratio 17.1 05/12/17 13:18 Glucose 111 mg/dL 05/12/17 13:18 Calcium 9.2 mg/dL (8.6-10.3) 05/12/17 13:18 Total Bilirubin 0.4 mg/dL (0.3-1.0) 05/12/17 13:18 AST 18 U/L (13-39) 05/12/17 13:18 ALT 13 U/L (7-52) 05/12/17 13:18 Alkaline Phosphatase 58 U/L (34-104) 05/12/17 13:18 Total Protein 7.3 gm/dL (6.0-8.3) 05/12/17 13:18 Albumin 4.1 gm/dL (4.2-5.5) L 05/12/17 13:18 Globulin 3.2 gm/dL 05/12/17 13:18 Albumin/Globulin Ratio 1.3 (1.0-1.8) 05/12/17 13:18 Triglycerides 106 mg/dL (<150) 05/12/17 13:18 Cholesterol 191 mg/dL (<200) 05/12/17 13:18 LDL Cholesterol Direct 111 mg/dL (75-193) 05/12/17 13:18 HDL Cholesterol 57 mg/dL (23-92) 05/12/17 13:18 TSH 0.64 uIU/ml (0.34-5.60) 05/12/17 13:18 Urine Source CLEAN C 05/12/17 14:00 Urine Color YELLOW 05/12/17 14:00 Urine Clarity HAZY (CLEAR) 05/12/17 14:00 Urine pH 8.0 (4.6 - 8.0) 05/12/17 14:00 Ur Specific [place] 1.010 (1.005-1.030) 05/12/17 14:00 Urine Protein NEGATIVE mg/dL (NEGATIVE) 05/12/17 14:00 Urine Glucose (UA) NEGATIVE mg/dL (NEGATIVE) 05/12/17 14:00 Urine Ketones NEGATIVE mg/dL (NEGATIVE) 05/12/17 14:00 Urine Blood NEGATIVE (NEGATIVE) 05/12/17 14:00 Urine Nitrate POSITIVE (NEGATIVE) H 05/12/17 14:00 Urine Bilirubin NEGATIVE (NEGATIVE) 05/12/17 14:00 Urine Urobilinogen 0.2 E.U./dL (0.2 - 1.0) 05/12/17 14:00 Ur Leukocyte Esterase NEGATIVE (NEGATIVE) 05/12/17 14:00 Urine RBC NONE SEEN /hpf (0-5) 05/12/17 14:00 Urine WBC NONE SEEN /hpf (0-5) 05/12/17 14:00 Ur Epithelial Cells NONE SEEN /lpf (FEW) 05/12/17 14:00 Urine Bacteria MODERATE /hpf (NONE SEEN) 05/12/17 14:00 RPR NONREACTIVE (NONREACTIVE) 05/12/17 13:18 - Physical Exam Vitals and I&O: Vital Signs Temp 98 F 05/17/17 06:35 Pulse 77 05/17/17 09:17 Resp 18 05/17/17 06:35 BP 104/69 05/17/17 09:17 Pulse Ox 97 05/17/17 06:35 Intake & Output 05/16/17 05/17/17 05/17/17 18:59 06:59 18:59 Intake Total 480 Balance 480 Intake: Oral 480 Other: # Voids 1 Active Medications: Current Medications Aspirin (Ecotrin) 81 mg PO DAILY [facility] Stop: 07/12/17 08:59 Last Admin: 05/17/17 09:33 Dose: 81 mg Carvedilol (Coreg) 3.125 mg PO BID [facility] Stop: 07/11/17 16:59 Last Admin: 05/17/17 09:17 Dose: Not Given Clozapine (Clozaril) 400 mg PO [facility] PRN Reason: Protocol Stop: 07/11/17 20:59 Last Admin: 05/16/17 21:04 Dose: 400 mg Docusate Sodium (Colace) 200 mg PO BID [facility] Stop: 07/11/17 16:59 Last Admin: 05/17/17 09:33 Dose: 200 mg Fenofibrate (Tricor) 134 mg PO [facility] Stop: 07/12/17 20:59 Last Admin: 05/16/17 21:04 Dose: 134 mg Fish Oil ([place] 3) 1,000 mg PO DAILY [facility] Stop: 07/12/17 08:59 Last Admin: 05/17/17 09:33 Dose: 1,000 mg Levetiracetam (Keppra) 500 mg PO Q12H [facility] Stop: 07/14/17 08:59 Last Admin: 05/17/17 09:33 Dose: 500 mg Lorazepam (Ativan) 1 mg PO Q6HR PRN; Protocol PRN Reason: Anxiety Stop: 07/12/17 13:15 Last Admin: 05/17/17 09:33 Dose: 1 mg Pantoprazole Sodium (Protonix) 40 mg PO DAILY [facility] Stop: 07/12/17 08:59 Last Admin: 05/17/17 09:33 Dose: 40 mg Polyethylene Glycol (Miralax) 17 gm PO BID [facility] Stop: 07/11/17 16:59 Last Admin: 05/17/17 09:33 Dose: 17 gm Psyllium Hydrophilic Mucilloid (Metamucil) 1 pkt PO BID [facility] Stop: 07/11/17 16:59 Last Admin: 05/17/17 09:33 Dose: 1 pkt Zolpidem Tartrate (Ambien) 5 mg PO HS PRN PRN Reason: Insomnia Stop: 07/12/17 17:54 Last Admin: 05/14/17 21:13 Dose: 5 mg General: alert HEENT: NC/AT, PERRLA Neck: Supple Lungs: CTAB Cardiovascular: RRR, Normal S1, Normal S2, without murmur Abdomen: soft, non-tender, non-distended, positive bowel sound Extremities: excoriation Neurological: alert, other Internal Medicine Assmt/Plan - Assessment Assessment: GERD HTN PUD SCHIZOAFFECTIVE DISORDER TACHYCARDIA HYPOKALEMIA HYPONATREMIA MILD PROTEIN CALORIE MALNUTRITION WITH LOW ALBUMIN CONSTIPATION SEIZURE HYPERCHOLESTEREMIA - Plan Plan: seizure precautions fall precautions continue ppi continue current plan of care Nutritional Asmnt/Malnutr-PDOC - Dietary Evaluation Malnutrition Findings (Please click <Entered> for more info): Nutritional Asmnt/Malnutrition Start: 05/16/17 09: 17 Text: Status: Complete Freq: Document 05/16/17 09:17 KLAUDIA (Rec: 05/16/17 09:31 [email or web address]- [email or web address]) Nutritional Asmnt/Malnutrition Patient General Information Nutritional Screening Moderate Risk Diagnosis Schizophrenia, agitation, psychosis Pertinent Medical Hx/Surgical Hx Cirrhosis of liver, GERD, intellectual disabilities, abnormal posture, anxiety Subjective Information Patient was admitted from SNF. Patient seen walking in the halls at time of visit. Current Diet Order/ Nutrition Support Mechanical soft chopped APRIL Patient / S.O Can't verbalize diet edu Pertinent Medications colace, omega 3, protonix, miralax, metamucil Pertinent Labs 05/12: Na 133, K 3.4 Nutritional Hx/Data Height 5 ft 8 in Height (Calculated Centimeters) 172.7 Current Weight (lbs) 140 lb Weight (Calculated Kilograms) 63.5 Weight (Calculated Grams) 99336.9 [place] Body Weight 154 % [place] Body Weight 90 Body Mass Index (BMI) 21.2 Weight Status Approriate GI Symptoms GI Symptoms None Last BM Prior to admission Difficult in: None Food Allergies No Cultural/Ethnic/Baptist Belief None noted Usual diet at home Regular Skin Integrity/Comment: Nima 20, intact Current %PO Fair (50-74%) Estimated Nutritional Goals BEE in Kcals: Using Current wt Calories/Kcals/Kg 25-30kcal/kg Kcals Calculated 9571-7640 kcal/day Protein: Using Current wt Protein g/k.8-1 gm/kg Protein Calculated 50-65 gm/day Fluid: ml 8236-2282 ml/day (1 ml/kcal) Nutritional Problem 1. Problem Problem Altered nutrition related lab values related to Etiology electrolyte imbalance aeb Signs/Symptoms: K 3.4, Na 133 Intervention/Recommendation Comments 1. Continue Mechanical soft, chopped, APRIL diet as tolerated by patient. 2. MD to consider fluid restriction if Na does not normalize. 3. Increase intake of potassium rich foods. Expected Outcomes/Goals Expected Outcomes/Goals Nutrition related labs normalize, weight stable, oral intake to meet > 75% of nutrient needs.
[2017-05-17] MEDS: Fenofibrate, Micronized 134 mg Cap PO SCH (20:48)
--- NOTE | 2017-05-17 21:58 | Progress Notes ---
DATE: 05/16/2017 SUBJECTIVE: Staff was spoken to. The patient is interviewed. Mood is noted to be irritable. Affect is constricted. The patient is very deceptive. The patient has been trying to plug the toilets. The patient's mother came by and when she reprimanded him patient has been subdued and started to be very quiet and has been able to follow the directions. Insight and judgment at this time are noted to be still impaired. Impulse control seems to be poor. The patient has no coping skills. ASSESSMENT: The patient is still psychotic. PLAN: To continue the patient with the supportive therapy. I encouraged the patient to verbalize the concerns rather than to act out. The patient is going to be closely monitored and followed up and patient is going to be redirected. The patient is not ready to be discharged to a low level of care yet. JOB# [id number]
--- NOTE | 2017-05-18 03:56 | Progress Notes ---
DATE: 05/17/2017 PSYCHIATRIC PROGRESS NOTE SUBJECTIVE: Staff was spoken to. The patient is interviewed. Mood is noted to be irritable. Affect is constricted. Coping skills are noted to be very poor. Sleep and appetite are also noted to be poor. The patient has been very intrusive and has been impulsive. The patient has been getting into other people rooms. The patient has no insight. The patient needs to be redirected. The patient is currently on Clozaril and has been able to tolerate the medication. ASSESSMENT: The patient is still psychotic. PLAN: To continue the patient with the supportive therapy and followup. JOB# [id number]
[2017-05-18] MEDS: Pantoprazole 40 mg EC Tab PO SCH (08:52)
[2017-05-18] MEDS: POLYETHYLENE GLYCOL 3350 17 GM PACK PO SCH ×2 (08:53→17:04)
[2017-05-18] MEDS: Fish Oil 1,000 MG SGL PO SCH (08:53)
--- NOTE | 2017-05-18 11:05 | Internal Medicine Prog Note ---
Internal Medicine Subjective - Subjective Service Date: 05/18/17 Patient is:: awake, verbal, ambulating, confused Per staff patient has:: tolerating meds Internal Medicine Objective - Results Result Diagrams: 05/12/17 13:18 05/12/17 13:18 Recent Labs: Laboratory Last Values WBC 7.3 Th/cmm (4.8-10.8) 05/12/17 13:18 RBC 4.96 Mil/cmm (4.30-5.70) 05/12/17 13:18 Hgb 13.5 gm/dL (12-16) 05/12/17 13:18 Hct 40.7 % (41.0-60) L 05/12/17 13:18 MCV 82.0 fl (80-99) 05/12/17 13:18 MCH 27.1 pg (26.0-30.0) 05/12/17 13:18 MCHC Differential 33.1 pg (28.0-36.0) 05/12/17 13:18 RDW 13.9 % (11.5-20.0) 05/12/17 13:18 Plt Count 307 Th/cmm (150-400) 05/12/17 13:18 MPV 7.0 fl 05/12/17 13:18 Neutrophils % 66.2 % (40.0-80.0) 05/12/17 13:18 Lymphocytes % 26.1 % (20.0-50.0) 05/12/17 13:18 Monocytes % 5.8 % (2.0-10.0) 05/12/17 13:18 Eosinophils % 0.7 % (0.0-5.0) 05/12/17 13:18 Basophils % 1.2 % (0.0-2.0) 05/12/17 13:18 Sodium 133 mEq/L (136-145) L 05/12/17 13:18 Potassium 3.4 mEq/L (3.5-5.1) L 05/12/17 13:18 Chloride 101 mEq/L (98-107) 05/12/17 13:18 Carbon Dioxide 29.0 mEq/L (21.0-31.0) 05/12/17 13:18 Anion Gap 6.4 (7.0-16.0) L 05/12/17 13:18 BUN 12 mg/dL (7-25) 05/12/17 13:18 Creatinine 0.7 mg/dL (0.7-1.3) 05/12/17 13:18 Est GFR ( Amer) > 60.0 ml/min (>90) 05/12/17 13:18 Est GFR (Non-Af Amer) > 60.0 ml/min 05/12/17 13:18 BUN/Creatinine Ratio 17.1 05/12/17 13:18 Glucose 111 mg/dL 05/12/17 13:18 Calcium 9.2 mg/dL (8.6-10.3) 05/12/17 13:18 Total Bilirubin 0.4 mg/dL (0.3-1.0) 05/12/17 13:18 AST 18 U/L (13-39) 05/12/17 13:18 ALT 13 U/L (7-52) 05/12/17 13:18 Alkaline Phosphatase 58 U/L (34-104) 05/12/17 13:18 Total Protein 7.3 gm/dL (6.0-8.3) 05/12/17 13:18 Albumin 4.1 gm/dL (4.2-5.5) L 05/12/17 13:18 Globulin 3.2 gm/dL 05/12/17 13:18 Albumin/Globulin Ratio 1.3 (1.0-1.8) 05/12/17 13:18 Triglycerides 106 mg/dL (<150) 05/12/17 13:18 Cholesterol 191 mg/dL (<200) 05/12/17 13:18 LDL Cholesterol Direct 111 mg/dL (75-193) 05/12/17 13:18 HDL Cholesterol 57 mg/dL (23-92) 05/12/17 13:18 TSH 0.64 uIU/ml (0.34-5.60) 05/12/17 13:18 Urine Source CLEAN C 05/12/17 14:00 Urine Color YELLOW 05/12/17 14:00 Urine Clarity HAZY (CLEAR) 05/12/17 14:00 Urine pH 8.0 (4.6 - 8.0) 05/12/17 14:00 Ur Specific [place] 1.010 (1.005-1.030) 05/12/17 14:00 Urine Protein NEGATIVE mg/dL (NEGATIVE) 05/12/17 14:00 Urine Glucose (UA) NEGATIVE mg/dL (NEGATIVE) 05/12/17 14:00 Urine Ketones NEGATIVE mg/dL (NEGATIVE) 05/12/17 14:00 Urine Blood NEGATIVE (NEGATIVE) 05/12/17 14:00 Urine Nitrate POSITIVE (NEGATIVE) H 05/12/17 14:00 Urine Bilirubin NEGATIVE (NEGATIVE) 05/12/17 14:00 Urine Urobilinogen 0.2 E.U./dL (0.2 - 1.0) 05/12/17 14:00 Ur Leukocyte Esterase NEGATIVE (NEGATIVE) 05/12/17 14:00 Urine RBC NONE SEEN /hpf (0-5) 05/12/17 14:00 Urine WBC NONE SEEN /hpf (0-5) 05/12/17 14:00 Ur Epithelial Cells NONE SEEN /lpf (FEW) 05/12/17 14:00 Urine Bacteria MODERATE /hpf (NONE SEEN) 05/12/17 14:00 RPR NONREACTIVE (NONREACTIVE) 05/12/17 13:18 - Physical Exam Vitals and I&O: Vital Signs Temp 98.3 F 05/18/17 06:39 Pulse 57 05/18/17 06:39 Resp 17 05/18/17 06:39 BP 118/80 05/18/17 06:39 Pulse Ox 98 05/18/17 06:39 Intake & Output 05/17/17 05/18/17 05/18/17 18:59 06:59 18:59 Intake Total 600 Balance 600 Intake: Oral 600 Other: # Voids 4 # Bowel Movements 2 Stool Characteristics Formed Active Medications: Current Medications Aspirin (Ecotrin) 81 mg PO DAILY [facility] Stop: 07/12/17 08:59 Last Admin: 05/18/17 08:53 Dose: 81 mg Carvedilol (Coreg) 3.125 mg PO BID [facility] Stop: 07/11/17 16:59 Last Admin: 05/18/17 08:48 Dose: Not Given Clozapine (Clozaril) 400 mg PO HS [facility] PRN Reason: Protocol Stop: 07/11/17 20:59 Last Admin: 05/17/17 20:48 Dose: 400 mg Docusate Sodium (Colace) 200 mg PO BID [facility] Stop: 07/11/17 16:59 Last Admin: 05/18/17 08:52 Dose: 200 mg Fenofibrate (Tricor) 134 mg PO HS [facility] Stop: 07/12/17 20:59 Last Admin: 05/17/17 20:48 Dose: 134 mg Fish Oil ([place] 3) 1,000 mg PO DAILY [facility] Stop: 07/12/17 08:59 Last Admin: 05/18/17 08:53 Dose: 1,000 mg Levetiracetam (Keppra) 500 mg PO Q12H [facility] Stop: 07/14/17 08:59 Last Admin: 05/18/17 08:53 Dose: 500 mg Lorazepam (Ativan) 1 mg PO Q6HR PRN; Protocol PRN Reason: Anxiety Stop: 07/12/17 13:15 Last Admin: 05/18/17 08:53 Dose: 1 mg Pantoprazole Sodium (Protonix) 40 mg PO DAILY [facility] Stop: 07/12/17 08:59 Last Admin: 05/18/17 08:52 Dose: 40 mg Polyethylene Glycol (Miralax) 17 gm PO BID [facility] Stop: 07/11/17 16:59 Last Admin: 05/18/17 08:53 Dose: 17 gm Psyllium Hydrophilic Mucilloid (Metamucil) 1 pkt PO BID [facility] Stop: 07/11/17 16:59 Last Admin: 05/18/17 08:53 Dose: 1 pkt Zolpidem Tartrate (Ambien) 5 mg PO HS PRN PRN Reason: Insomnia Stop: 07/12/17 17:54 Last Admin: 05/17/17 20:48 Dose: 5 mg General: alert HEENT: NC/AT, PERRLA Neck: Supple Lungs: CTAB Cardiovascular: RRR, Normal S1, Normal S2, without murmur Abdomen: soft, non-tender, non-distended, positive bowel sound Extremities: excoriation Neurological: alert, other Internal Medicine Assmt/Plan - Assessment Assessment: GERD HTN PUD SCHIZOAFFECTIVE DISORDER TACHYCARDIA HYPOKALEMIA HYPONATREMIA MILD PROTEIN CALORIE MALNUTRITION WITH LOW ALBUMIN CONSTIPATION SEIZURE HYPERCHOLESTEREMIA - Plan Plan: seizure precautions fall precautions continue ppi continue current plan of care Nutritional Asmnt/Malnutr-PDOC - Dietary Evaluation Malnutrition Findings (Please click <Entered> for more info): Nutritional Asmnt/Malnutrition Start: 05/16/17 09: 17 Text: Status: Complete Freq: Document 05/16/17 09:17 [email or web address] (Rec: 05/16/17 09:31 HERNÁNShirin SMITH- [email or web address]) Nutritional Asmnt/Malnutrition Patient General Information Nutritional Screening Moderate Risk Diagnosis Schizophrenia, agitation, psychosis Pertinent Medical Hx/Surgical Hx Cirrhosis of liver, GERD, intellectual disabilities, abnormal posture, anxiety Subjective Information Patient was admitted from SNF. Patient seen walking in the halls at time of visit. Current Diet Order/ Nutrition Support Mechanical soft chopped APRIL Patient / S.O Can't verbalize diet edu Pertinent Medications colace, omega 3, protonix, miralax, metamucil Pertinent Labs 05/12: Na 133, K 3.4 Nutritional Hx/Data Height 5 ft 8 in Height (Calculated Centimeters) 172.7 Current Weight (lbs) 140 lb Weight (Calculated Kilograms) 63.5 Weight (Calculated Grams) 17281.9 [place] Body Weight 154 % [place] Body Weight 90 Body Mass Index (BMI) 21.2 Weight Status Approriate GI Symptoms GI Symptoms None Last BM Prior to admission Difficult in: None Food Allergies No Cultural/Ethnic/Anab[employer]ism Belief None noted Usual diet at home Regular Skin Integrity/Comment: Nima 20, intact Current %PO Fair (50-74%) Estimated Nutritional Goals BEE in Kcals: Using Current wt Calories/Kcals/Kg 25-30kcal/kg Kcals Calculated 4671-5380 kcal/day Protein: Using Current wt Protein g/k.8-1 gm/kg Protein Calculated 50-65 gm/day Fluid: ml 7238-7578 ml/day (1 ml/kcal) Nutritional Problem 1. Problem Problem Altered nutrition related lab values related to Etiology electrolyte imbalance aeb Signs/Symptoms: K 3.4, Na 133 Intervention/Recommendation Comments 1. Continue Mechanical soft, chopped, APRIL diet as tolerated by patient. 2. MD to consider fluid restriction if Na does not normalize. 3. Increase intake of potassium rich foods. Expected Outcomes/Goals Expected Outcomes/Goals Nutrition related labs normalize, weight stable, oral intake to meet > 75% of nutrient needs.
[2017-05-18] MEDS: Fenofibrate, Micronized 134 mg Cap PO SCH (20:42)
--- NOTE | 2017-05-18 23:46 | Progress Notes ---
DATE: 05/18/2017 PSYCHIATRIC PROGRESS NOTE SUBJECTIVE: Staff was spoken to. The patient is interviewed. Mood is noted to be irritable. Affect is constricted. The patient's behavior is noted to be very disruptive. The patient has been trying to clog the toilets. The patient's coping skills are noted to be very poor, needs to be redirected. The patient is willing to follow the directions only when we say that the mother is going to be coming to talk to him. The patient has no insight into his illness. ASSESSMENT: The patient is still psychotic. PLAN: To continue the patient with supportive therapy, encouraged the patient to verbalize the concerns rather than to act out. [facility]# [id number]
[2017-05-19] MEDS: Fish Oil 1,000 MG SGL PO SCH (09:19)
[2017-05-19] MEDS: POLYETHYLENE GLYCOL 3350 17 GM PACK PO SCH ×2 (09:19→17:10)
[2017-05-19] MEDS: Pantoprazole 40 mg EC Tab PO SCH (09:20)
--- NOTE | 2017-05-19 12:38 | Internal Medicine Prog Note ---
Internal Medicine Subjective - Subjective Service Date: 05/19/17 Patient is:: awake, verbal, ambulating, confused Per staff patient has:: tolerating meds Internal Medicine Objective - Results Result Diagrams: 05/12/17 13:18 05/12/17 13:18 Recent Labs: Laboratory Last Values WBC 7.3 Th/cmm (4.8-10.8) 05/12/17 13:18 RBC 4.96 Mil/cmm (4.30-5.70) 05/12/17 13:18 Hgb 13.5 gm/dL (12-16) 05/12/17 13:18 Hct 40.7 % (41.0-60) L 05/12/17 13:18 MCV 82.0 fl (80-99) 05/12/17 13:18 MCH 27.1 pg (26.0-30.0) 05/12/17 13:18 MCHC Differential 33.1 pg (28.0-36.0) 05/12/17 13:18 RDW 13.9 % (11.5-20.0) 05/12/17 13:18 Plt Count 307 Th/cmm (150-400) 05/12/17 13:18 MPV 7.0 fl 05/12/17 13:18 Neutrophils % 66.2 % (40.0-80.0) 05/12/17 13:18 Lymphocytes % 26.1 % (20.0-50.0) 05/12/17 13:18 Monocytes % 5.8 % (2.0-10.0) 05/12/17 13:18 Eosinophils % 0.7 % (0.0-5.0) 05/12/17 13:18 Basophils % 1.2 % (0.0-2.0) 05/12/17 13:18 Sodium 133 mEq/L (136-145) L 05/12/17 13:18 Potassium 3.4 mEq/L (3.5-5.1) L 05/12/17 13:18 Chloride 101 mEq/L (98-107) 05/12/17 13:18 Carbon Dioxide 29.0 mEq/L (21.0-31.0) 05/12/17 13:18 Anion Gap 6.4 (7.0-16.0) L 05/12/17 13:18 BUN 12 mg/dL (7-25) 05/12/17 13:18 Creatinine 0.7 mg/dL (0.7-1.3) 05/12/17 13:18 Est GFR ( Amer) > 60.0 ml/min (>90) 05/12/17 13:18 Est GFR (Non-Af Amer) > 60.0 ml/min 05/12/17 13:18 BUN/Creatinine Ratio 17.1 05/12/17 13:18 Glucose 111 mg/dL 05/12/17 13:18 Calcium 9.2 mg/dL (8.6-10.3) 05/12/17 13:18 Total Bilirubin 0.4 mg/dL (0.3-1.0) 05/12/17 13:18 AST 18 U/L (13-39) 05/12/17 13:18 ALT 13 U/L (7-52) 05/12/17 13:18 Alkaline Phosphatase 58 U/L (34-104) 05/12/17 13:18 Total Protein 7.3 gm/dL (6.0-8.3) 05/12/17 13:18 Albumin 4.1 gm/dL (4.2-5.5) L 05/12/17 13:18 Globulin 3.2 gm/dL 05/12/17 13:18 Albumin/Globulin Ratio 1.3 (1.0-1.8) 05/12/17 13:18 Triglycerides 106 mg/dL (<150) 05/12/17 13:18 Cholesterol 191 mg/dL (<200) 05/12/17 13:18 LDL Cholesterol Direct 111 mg/dL (75-193) 05/12/17 13:18 HDL Cholesterol 57 mg/dL (23-92) 05/12/17 13:18 TSH 0.64 uIU/ml (0.34-5.60) 05/12/17 13:18 Urine Source CLEAN C 05/12/17 14:00 Urine Color YELLOW 05/12/17 14:00 Urine Clarity HAZY (CLEAR) 05/12/17 14:00 Urine pH 8.0 (4.6 - 8.0) 05/12/17 14:00 Ur Specific [place] 1.010 (1.005-1.030) 05/12/17 14:00 Urine Protein NEGATIVE mg/dL (NEGATIVE) 05/12/17 14:00 Urine Glucose (UA) NEGATIVE mg/dL (NEGATIVE) 05/12/17 14:00 Urine Ketones NEGATIVE mg/dL (NEGATIVE) 05/12/17 14:00 Urine Blood NEGATIVE (NEGATIVE) 05/12/17 14:00 Urine Nitrate POSITIVE (NEGATIVE) H 05/12/17 14:00 Urine Bilirubin NEGATIVE (NEGATIVE) 05/12/17 14:00 Urine Urobilinogen 0.2 E.U./dL (0.2 - 1.0) 05/12/17 14:00 Ur Leukocyte Esterase NEGATIVE (NEGATIVE) 05/12/17 14:00 Urine RBC NONE SEEN /hpf (0-5) 05/12/17 14:00 Urine WBC NONE SEEN /hpf (0-5) 05/12/17 14:00 Ur Epithelial Cells NONE SEEN /lpf (FEW) 05/12/17 14:00 Urine Bacteria MODERATE /hpf (NONE SEEN) 05/12/17 14:00 RPR NONREACTIVE (NONREACTIVE) 05/12/17 13:18 - Physical Exam Vitals and I&O: Vital Signs Temp 97.9 F 05/19/17 06:07 Pulse 84 05/19/17 09:19 Resp 19 05/19/17 06:07 BP 119/78 05/19/17 09:19 Pulse Ox 94 05/19/17 06:07 Intake & Output 05/18/17 05/19/17 05/19/17 18:59 06:59 18:59 Intake Total 1200 240 Balance 1200 240 Intake: Oral 1200 240 Other: # Voids 5 3 # Bowel Movements 2 0 Stool Characteristics Formed Active Medications: Current Medications Aspirin (Ecotrin) 81 mg PO DAILY [facility] Stop: 07/12/17 08:59 Last Admin: 05/19/17 09:19 Dose: 81 mg Carvedilol (Coreg) 3.125 mg PO BID [facility] Stop: 07/11/17 16:59 Last Admin: 05/19/17 09:19 Dose: 3.125 mg Clozapine (Clozaril) 400 mg PO [facility] PRN Reason: Protocol Stop: 07/11/17 20:59 Last Admin: 05/18/17 20:42 Dose: 400 mg Docusate Sodium (Colace) 200 mg PO BID [facility] Stop: 07/11/17 16:59 Last Admin: 05/19/17 09:20 Dose: 200 mg Fenofibrate (Tricor) 134 mg PO HS [facility] Stop: 07/12/17 20:59 Last Admin: 05/18/17 20:42 Dose: 134 mg Fish Oil ([place] 3) 1,000 mg PO DAILY [facility] Stop: 07/12/17 08:59 Last Admin: 05/19/17 09:19 Dose: 1,000 mg Levetiracetam (Keppra) 500 mg PO Q12H [facility] Stop: 07/14/17 08:59 Last Admin: 05/19/17 09:20 Dose: 500 mg Lorazepam (Ativan) 1 mg PO Q6HR PRN; Protocol PRN Reason: Anxiety Stop: 07/12/17 13:15 Last Admin: 05/18/17 17:04 Dose: 1 mg Pantoprazole Sodium (Protonix) 40 mg PO DAILY [facility] Stop: 07/12/17 08:59 Last Admin: 05/19/17 09:20 Dose: 40 mg Polyethylene Glycol (Miralax) 17 gm PO BID [facility] Stop: 07/11/17 16:59 Last Admin: 05/19/17 09:19 Dose: 17 gm Psyllium Hydrophilic Mucilloid (Metamucil) 1 pkt PO BID [facility] Stop: 07/11/17 16:59 Last Admin: 05/19/17 09:19 Dose: 1 pkt Zolpidem Tartrate (Ambien) 5 mg PO HS PRN PRN Reason: Insomnia Stop: 07/12/17 17:54 Last Admin: 05/17/17 20:48 Dose: 5 mg General: alert HEENT: NC/AT, PERRLA Neck: Supple Lungs: CTAB Cardiovascular: RRR, Normal S1, Normal S2, without murmur Abdomen: soft, non-tender, non-distended, positive bowel sound Extremities: excoriation Neurological: alert, other Internal Medicine Assmt/Plan - Assessment Assessment: GERD HTN PUD SCHIZOAFFECTIVE DISORDER TACHYCARDIA HYPOKALEMIA HYPONATREMIA MILD PROTEIN CALORIE MALNUTRITION WITH LOW ALBUMIN CONSTIPATION SEIZURE HYPERCHOLESTEREMIA - Plan Plan: seizure precautions fall precautions continue ppi continue current plan of care Nutritional Asmnt/Malnutr-PDOC - Dietary Evaluation Malnutrition Findings (Please click <Entered> for more info): Nutritional Asmnt/Malnutrition Start: 05/16/17 09: 17 Text: Status: Complete Freq: Document 11/11/17 09:17 KLAUDIA (Rec: 05/16/17 09:31 [email or web address] SMITH- [email or web address]) Nutritional Asmnt/Malnutrition Patient General Information Nutritional Screening Moderate Risk Diagnosis Schizophrenia, agitation, psychosis Pertinent Medical Hx/Surgical Hx Cirrhosis of liver, GERD, intellectual disabilities, abnormal posture, anxiety Subjective Information Patient was admitted from SNF. Patient seen walking in the halls at time of visit. Current Diet Order/ Nutrition Support Mechanical soft chopped APRIL Patient / S.O Can't verbalize diet edu Pertinent Medications colace, omega 3, protonix, miralax, metamucil Pertinent Labs 05/12: Na 133, K 3.4 Nutritional Hx/Data Height 5 ft 8 in Height (Calculated Centimeters) 172.7 Current Weight (lbs) 140 lb Weight (Calculated Kilograms) 63.5 Weight (Calculated Grams) 39123.9 [place] Body Weight 154 % [place] Body Weight 90 Body Mass Index (BMI) 21.2 Weight Status Approriate GI Symptoms GI Symptoms None Last BM Prior to admission Difficult in: None Food Allergies No Cultural/Ethnic/L[employer] Belief None noted Usual diet at home Regular Skin Integrity/Comment: [place] 20, intact Current %PO Fair (50-74%) Estimated Nutritional Goals BEE in Kcals: Using Current wt Calories/Kcals/Kg 25-30kcal/kg Kcals Calculated 9087-6615 kcal/day Protein: Using Current wt Protein g/k.8-1 gm/kg Protein Calculated 50-65 gm/day Fluid: ml 2606-8484 ml/day (1 ml/kcal) Nutritional Problem 1. Problem Problem Altered nutrition related lab values related to Etiology electrolyte imbalance aeb Signs/Symptoms: K 3.4, Na 133 Intervention/Recommendation Comments 1. Continue Mechanical soft, chopped, APRIL diet as tolerated by patient. 2. MD to consider fluid restriction if Na does not normalize. 3. Increase intake of potassium rich foods. Expected Outcomes/Goals Expected Outcomes/Goals Nutrition related labs normalize, weight stable, oral intake to meet > 75% of nutrient needs.
[2017-05-19] MEDS: Fenofibrate, Micronized 134 mg Cap PO SCH (20:48)
--- NOTE | 2017-05-20 00:48 | Progress Notes ---
DATE: 05/12/2017 PSYCHIATRIC PROGRESS NOTE SUBJECTIVE: Staff was spoken to. The patient is interviewed. Mood is noted to be irritable. Affect is constricted. The patient is getting into other people's rooms and trying to take a stuff. The patient needs to be redirected. Coping skills at this time are noted to be very poor. Sleep and appetite are also noted to be very poor. ASSESSMENT: The patient is still psychotic. PLAN: To continue the patient with Clozaril and follow the patient with the supportive therapy. JOB# [id number]
[2017-05-20] MEDS: POLYETHYLENE GLYCOL 3350 17 GM PACK PO SCH ×2 (08:49→16:40)
[2017-05-20] MEDS: Fish Oil 1,000 MG SGL PO SCH (08:50)
[2017-05-20] MEDS: Pantoprazole 40 mg EC Tab PO SCH (08:51)
--- NOTE | 2017-05-20 11:45 | Internal Medicine Prog Note ---
Internal Medicine Subjective - Subjective Service Date: 05/20/17 Patient is:: awake, verbal, ambulating, confused Per staff patient has:: tolerating meds Internal Medicine Objective - Results Result Diagrams: 05/12/17 13:18 05/12/17 13:18 Recent Labs: Laboratory Last Values WBC 7.3 Th/cmm (4.8-10.8) 05/12/17 13:18 RBC 4.96 Mil/cmm (4.30-5.70) 05/12/17 13:18 Hgb 13.5 gm/dL (12-16) 05/12/17 13:18 Hct 40.7 % (41.0-60) L 05/12/17 13:18 MCV 82.0 fl (80-99) 05/12/17 13:18 MCH 27.1 pg (26.0-30.0) 05/12/17 13:18 MCHC Differential 33.1 pg (28.0-36.0) 05/12/17 13:18 RDW 13.9 % (11.5-20.0) 05/12/17 13:18 Plt Count 307 Th/cmm (150-400) 05/12/17 13:18 MPV 7.0 fl 05/12/17 13:18 Neutrophils % 66.2 % (40.0-80.0) 05/12/17 13:18 Lymphocytes % 26.1 % (20.0-50.0) 05/12/17 13:18 Monocytes % 5.8 % (2.0-10.0) 05/12/17 13:18 Eosinophils % 0.7 % (0.0-5.0) 05/12/17 13:18 Basophils % 1.2 % (0.0-2.0) 05/12/17 13:18 Sodium 133 mEq/L (136-145) L 05/12/17 13:18 Potassium 3.4 mEq/L (3.5-5.1) L 05/12/17 13:18 Chloride 101 mEq/L (98-107) 05/12/17 13:18 Carbon Dioxide 29.0 mEq/L (21.0-31.0) 05/12/17 13:18 Anion Gap 6.4 (7.0-16.0) L 05/12/17 13:18 BUN 12 mg/dL (7-25) 05/12/17 13:18 Creatinine 0.7 mg/dL (0.7-1.3) 05/12/17 13:18 Est GFR ( Amer) > 60.0 ml/min (>90) 05/12/17 13:18 Est GFR (Non-Af Amer) > 60.0 ml/min 05/12/17 13:18 BUN/Creatinine Ratio 17.1 05/12/17 13:18 Glucose 111 mg/dL 05/12/17 13:18 Calcium 9.2 mg/dL (8.6-10.3) 05/12/17 13:18 Total Bilirubin 0.4 mg/dL (0.3-1.0) 05/12/17 13:18 AST 18 U/L (13-39) 05/12/17 13:18 ALT 13 U/L (7-52) 05/12/17 13:18 Alkaline Phosphatase 58 U/L (34-104) 05/12/17 13:18 Total Protein 7.3 gm/dL (6.0-8.3) 05/12/17 13:18 Albumin 4.1 gm/dL (4.2-5.5) L 05/12/17 13:18 Globulin 3.2 gm/dL 05/12/17 13:18 Albumin/Globulin Ratio 1.3 (1.0-1.8) 05/12/17 13:18 Triglycerides 106 mg/dL (<150) 05/12/17 13:18 Cholesterol 191 mg/dL (<200) 05/12/17 13:18 LDL Cholesterol Direct 111 mg/dL (75-193) 05/12/17 13:18 HDL Cholesterol 57 mg/dL (23-92) 05/12/17 13:18 TSH 0.64 uIU/ml (0.34-5.60) 05/12/17 13:18 Urine Source CLEAN C 05/12/17 14:00 Urine Color YELLOW 05/12/17 14:00 Urine Clarity HAZY (CLEAR) 05/12/17 14:00 Urine pH 8.0 (4.6 - 8.0) 05/12/17 14:00 Ur Specific [place] 1.010 (1.005-1.030) 05/12/17 14:00 Urine Protein NEGATIVE mg/dL (NEGATIVE) 05/12/17 14:00 Urine Glucose (UA) NEGATIVE mg/dL (NEGATIVE) 05/12/17 14:00 Urine Ketones NEGATIVE mg/dL (NEGATIVE) 05/12/17 14:00 Urine Blood NEGATIVE (NEGATIVE) 05/12/17 14:00 Urine Nitrate POSITIVE (NEGATIVE) H 05/12/17 14:00 Urine Bilirubin NEGATIVE (NEGATIVE) 05/12/17 14:00 Urine Urobilinogen 0.2 E.U./dL (0.2 - 1.0) 05/12/17 14:00 Ur Leukocyte Esterase NEGATIVE (NEGATIVE) 05/12/17 14:00 Urine RBC NONE SEEN /hpf (0-5) 05/12/17 14:00 Urine WBC NONE SEEN /hpf (0-5) 05/12/17 14:00 Ur Epithelial Cells NONE SEEN /lpf (FEW) 05/12/17 14:00 Urine Bacteria MODERATE /hpf (NONE SEEN) 05/12/17 14:00 RPR NONREACTIVE (NONREACTIVE) 05/12/17 13:18 - Physical Exam Vitals and I&O: Vital Signs Temp 97.8 F 05/20/17 06:07 Pulse 84 05/20/17 08:50 Resp 19 05/20/17 06:07 BP 97/71 05/20/17 08:50 Pulse Ox 99 05/20/17 06:07 Intake & Output 05/19/17 05/20/17 05/20/17 18:59 06:59 18:59 Intake Total 400 Output Total 2 Balance 398 Intake: Oral 400 Output: Urine 2 Other: # Bowel Movements 1 Stool Characteristics Formed Active Medications: Current Medications Aspirin (Ecotrin) 81 mg PO DAILY [facility] Stop: 07/12/17 08:59 Last Admin: 05/20/17 08:51 Dose: 81 mg Carvedilol (Coreg) 3.125 mg PO BID [facility] Stop: 07/11/17 16:59 Last Admin: 05/20/17 08:50 Dose: Not Given Clozapine (Clozaril) 400 mg PO HS BABS PRN Reason: Protocol Stop: 07/11/17 20:59 Last Admin: 05/19/17 20:48 Dose: 400 mg Docusate Sodium (Colace) 200 mg PO BID [facility] Stop: 07/11/17 16:59 Last Admin: 05/20/17 08:50 Dose: 200 mg Fenofibrate (Tricor) 134 mg PO HS BABS Stop: 07/12/17 20:59 Last Admin: 05/19/17 20:48 Dose: 134 mg Fish Oil ([place] 3) 1,000 mg PO DAILY [facility] Stop: 07/12/17 08:59 Last Admin: 05/20/17 08:50 Dose: 1,000 mg Levetiracetam (Keppra) 500 mg PO Q12H BABS Stop: 07/14/17 08:59 Last Admin: 05/20/17 08:50 Dose: 500 mg Lorazepam (Ativan) 1 mg PO Q6HR PRN; Protocol PRN Reason: Anxiety Stop: 07/12/17 13:15 Last Admin: 05/18/17 17:04 Dose: 1 mg Pantoprazole Sodium (Protonix) 40 mg PO DAILY [facility] Stop: 07/12/17 08:59 Last Admin: 05/20/17 08:51 Dose: 40 mg Polyethylene Glycol (Miralax) 17 gm PO BID [facility] Stop: 07/11/17 16:59 Last Admin: 05/20/17 08:49 Dose: 17 gm Psyllium Hydrophilic Mucilloid (Metamucil) 1 pkt PO BID [facility] Stop: 07/11/17 16:59 Last Admin: 05/20/17 08:49 Dose: 1 pkt Zolpidem Tartrate (Ambien) 5 mg PO HS PRN PRN Reason: Insomnia Stop: 07/12/17 17:54 Last Admin: 05/19/17 20:49 Dose: 5 mg General: alert HEENT: NC/AT, PERRLA Neck: Supple Lungs: CTAB Cardiovascular: RRR, Normal S1, Normal S2, without murmur Abdomen: soft, non-tender, non-distended, positive bowel sound Extremities: excoriation Neurological: alert, other Internal Medicine Assmt/Plan - Assessment Assessment: GERD HTN PUD SCHIZOAFFECTIVE DISORDER TACHYCARDIA HYPOKALEMIA HYPONATREMIA MILD PROTEIN CALORIE MALNUTRITION WITH LOW ALBUMIN CONSTIPATION SEIZURE HYPERCHOLESTEREMIA - Plan Plan: seizure precautions fall precautions continue ppi continue current plan of care Nutritional Asmnt/Malnutr-PDOC - Dietary Evaluation Malnutrition Findings (Please click <Entered> for more info): Nutritional Asmnt/Malnutrition Start: 05/16/17 09: 17 Text: Status: Complete Freq: Document 05/16/17 09:17 KLAUDIA (Rec: 05/16/17 09:31 [email or web address] SMITH- [id number]) Nutritional Asmnt/Malnutrition Patient General Information Nutritional Screening Moderate Risk Diagnosis Schizophrenia, agitation, psychosis Pertinent Medical Hx/Surgical Hx Cirrhosis of liver, GERD, intellectual disabilities, abnormal posture, anxiety Subjective Information Patient was admitted from SNF. Patient seen walking in the halls at time of visit. Current Diet Order/ Nutrition Support Mechanical soft chopped APRIL Patient / S.O Can't verbalize diet edu Pertinent Medications colace, omega 3, protonix, miralax, metamucil Pertinent Labs 05/12: Na 133, K 3.4 Nutritional Hx/Data Height 5 ft 8 in Height (Calculated Centimeters) 172.7 Current Weight (lbs) 140 lb Weight (Calculated Kilograms) 63.5 Weight (Calculated Grams) 97328.9 [place] Body Weight 154 % [place] Body Weight 90 Body Mass Index (BMI) 21.2 Weight Status Approriate GI Symptoms GI Symptoms None Last BM Prior to admission Difficult in: None Food Allergies No Cultural/Ethnic/Faith Belief None noted Usual diet at home Regular Skin Integrity/Comment: Nima 20, intact Current %PO Fair (50-74%) Estimated Nutritional Goals BEE in Kcals: Using Current wt Calories/Kcals/Kg 25-30kcal/kg Kcals Calculated 8114-8130 kcal/day Protein: Using Current wt Protein g/k.8-1 gm/kg Protein Calculated 50-65 gm/day Fluid: ml 0510-7086 ml/day (1 ml/kcal) Nutritional Problem 1. Problem Problem Altered nutrition related lab values related to Etiology electrolyte imbalance aeb Signs/Symptoms: K 3.4, Na 133 Intervention/Recommendation Comments 1. Continue Mechanical soft, chopped, APRIL diet as tolerated by patient. 2. MD to consider fluid restriction if Na does not normalize. 3. Increase intake of potassium rich foods. Expected Outcomes/Goals Expected Outcomes/Goals Nutrition related labs normalize, weight stable, oral intake to meet > 75% of nutrient needs.
[2017-05-20] MEDS: Fenofibrate, Micronized 134 mg Cap PO SCH (21:22)
--- NOTE | 2017-05-20 23:28 | Progress Notes ---
DATE: 05/20/2017 SUBJECTIVE: Staff was spoken to. The patient is interviewed. Mood is noted to be irritable. Affect is constricted. The patient is still psychotic. Insight and judgment are noted to be still impaired. Impulse control seems to be improving. Paranoid delusions are noted. The patient has been getting into other people's rooms, but the patient at this time has been able to verbalize the concern and could be redirectable. No side effects to the Clozaril are noted. ASSESSMENT: The patient is still psychotic, but the impulsivity is coming under control. PLAN: To continue the patient with the current medications and followup. JOB# [id number]
[2017-05-21] MEDS: Pantoprazole 40 mg EC Tab PO SCH (08:06)
[2017-05-21] MEDS: POLYETHYLENE GLYCOL 3350 17 GM PACK PO SCH (08:07)
[2017-05-21] MEDS: Fish Oil 1,000 MG SGL PO SCH (08:07)
--- NOTE | 2017-05-21 11:37 | Internal Medicine Prog Note ---
Internal Medicine Subjective - Subjective Service Date: 05/21/17 Patient is:: awake, verbal, ambulating, confused Per staff patient has:: tolerating meds Internal Medicine Objective - Results Result Diagrams: 05/12/17 13:18 05/12/17 13:18 Recent Labs: Laboratory Last Values WBC 7.3 Th/cmm (4.8-10.8) 05/12/17 13:18 RBC 4.96 Mil/cmm (4.30-5.70) 05/12/17 13:18 Hgb 13.5 gm/dL (12-16) 05/12/17 13:18 Hct 40.7 % (41.0-60) L 05/12/17 13:18 MCV 82.0 fl (80-99) 05/12/17 13:18 MCH 27.1 pg (26.0-30.0) 05/12/17 13:18 MCHC Differential 33.1 pg (28.0-36.0) 05/12/17 13:18 RDW 13.9 % (11.5-20.0) 05/12/17 13:18 Plt Count 307 Th/cmm (150-400) 05/12/17 13:18 MPV 7.0 fl 05/12/17 13:18 Neutrophils % 66.2 % (40.0-80.0) 05/12/17 13:18 Lymphocytes % 26.1 % (20.0-50.0) 05/12/17 13:18 Monocytes % 5.8 % (2.0-10.0) 05/12/17 13:18 Eosinophils % 0.7 % (0.0-5.0) 05/12/17 13:18 Basophils % 1.2 % (0.0-2.0) 05/12/17 13:18 Sodium 133 mEq/L (136-145) L 05/12/17 13:18 Potassium 3.4 mEq/L (3.5-5.1) L 05/12/17 13:18 Chloride 101 mEq/L (98-107) 05/12/17 13:18 Carbon Dioxide 29.0 mEq/L (21.0-31.0) 05/12/17 13:18 Anion Gap 6.4 (7.0-16.0) L 05/12/17 13:18 BUN 12 mg/dL (7-25) 05/12/17 13:18 Creatinine 0.7 mg/dL (0.7-1.3) 05/12/17 13:18 Est GFR ( Amer) > 60.0 ml/min (>90) 05/12/17 13:18 Est GFR (Non-Af Amer) > 60.0 ml/min 05/12/17 13:18 BUN/Creatinine Ratio 17.1 05/12/17 13:18 Glucose 111 mg/dL 05/12/17 13:18 Calcium 9.2 mg/dL (8.6-10.3) 05/12/17 13:18 Total Bilirubin 0.4 mg/dL (0.3-1.0) 05/12/17 13:18 AST 18 U/L (13-39) 05/12/17 13:18 ALT 13 U/L (7-52) 05/12/17 13:18 Alkaline Phosphatase 58 U/L (34-104) 05/12/17 13:18 Total Protein 7.3 gm/dL (6.0-8.3) 05/12/17 13:18 Albumin 4.1 gm/dL (4.2-5.5) L 05/12/17 13:18 Globulin 3.2 gm/dL 05/12/17 13:18 Albumin/Globulin Ratio 1.3 (1.0-1.8) 05/12/17 13:18 Triglycerides 106 mg/dL (<150) 05/12/17 13:18 Cholesterol 191 mg/dL (<200) 05/12/17 13:18 LDL Cholesterol Direct 111 mg/dL (75-193) 05/12/17 13:18 HDL Cholesterol 57 mg/dL (23-92) 05/12/17 13:18 TSH 0.64 uIU/ml (0.34-5.60) 05/12/17 13:18 Urine Source CLEAN C 05/12/17 14:00 Urine Color YELLOW 05/12/17 14:00 Urine Clarity HAZY (CLEAR) 05/12/17 14:00 Urine pH 8.0 (4.6 - 8.0) 05/12/17 14:00 Ur Specific [place] 1.010 (1.005-1.030) 05/12/17 14:00 Urine Protein NEGATIVE mg/dL (NEGATIVE) 05/12/17 14:00 Urine Glucose (UA) NEGATIVE mg/dL (NEGATIVE) 05/12/17 14:00 Urine Ketones NEGATIVE mg/dL (NEGATIVE) 05/12/17 14:00 Urine Blood NEGATIVE (NEGATIVE) 05/12/17 14:00 Urine Nitrate POSITIVE (NEGATIVE) H 05/12/17 14:00 Urine Bilirubin NEGATIVE (NEGATIVE) 05/12/17 14:00 Urine Urobilinogen 0.2 E.U./dL (0.2 - 1.0) 05/12/17 14:00 Ur Leukocyte Esterase NEGATIVE (NEGATIVE) 05/12/17 14:00 Urine RBC NONE SEEN /hpf (0-5) 05/12/17 14:00 Urine WBC NONE SEEN /hpf (0-5) 05/12/17 14:00 Ur Epithelial Cells NONE SEEN /lpf (FEW) 05/12/17 14:00 Urine Bacteria MODERATE /hpf (NONE SEEN) 05/12/17 14:00 RPR NONREACTIVE (NONREACTIVE) 05/12/17 13:18 - Physical Exam Vitals and I&O: Vital Signs Temp 97.8 F 05/21/17 06:25 Pulse 74 05/21/17 08:06 Resp 19 05/21/17 06:25 BP 107/67 05/21/17 08:06 Pulse Ox 98 05/21/17 06:25 Intake & Output 05/20/17 05/21/17 05/21/17 18:59 06:59 18:59 Intake Total 120 Balance 120 Intake: Oral 120 Other: # Voids 3 # Bowel Movements 1 Active Medications: Current Medications Aspirin (Ecotrin) 81 mg PO DAILY [facility] Stop: 07/12/17 08:59 Last Admin: 05/21/17 08:06 Dose: 81 mg Carvedilol (Coreg) 3.125 mg PO BID [facility] Stop: 07/11/17 16:59 Last Admin: 05/21/17 08:06 Dose: Not Given Clozapine (Clozaril) 400 mg PO [facility] PRN Reason: Protocol Stop: 07/11/17 20:59 Last Admin: 05/20/17 21:22 Dose: 400 mg Docusate Sodium (Colace) 200 mg PO BID [facility] Stop: 07/11/17 16:59 Last Admin: 05/21/17 08:07 Dose: Not Given Fenofibrate (Tricor) 134 mg PO HS [facility] Stop: 07/12/17 20:59 Last Admin: 05/20/17 21:22 Dose: 134 mg Fish Oil ([place] 3) 1,000 mg PO DAILY [facility] Stop: 07/12/17 08:59 Last Admin: 05/21/17 08:07 Dose: Not Given Levetiracetam (Keppra) 500 mg PO Q12H [facility] Stop: 07/14/17 08:59 Last Admin: 05/21/17 08:06 Dose: 500 mg Lorazepam (Ativan) 1 mg PO Q6HR PRN; Protocol PRN Reason: Anxiety Stop: 07/12/17 13:15 Last Admin: 05/18/17 17:04 Dose: 1 mg Pantoprazole Sodium (Protonix) 40 mg PO DAILY [facility] Stop: 07/12/17 08:59 Last Admin: 05/21/17 08:06 Dose: 40 mg Polyethylene Glycol (Miralax) 17 gm PO BID [facility] Stop: 07/11/17 16:59 Last Admin: 05/21/17 08:07 Dose: Not Given Psyllium Hydrophilic Mucilloid (Metamucil) 1 pkt PO BID [facility] Stop: 07/11/17 16:59 Last Admin: 05/21/17 08:06 Dose: Not Given Zolpidem Tartrate (Ambien) 5 mg PO HS PRN PRN Reason: Insomnia Stop: 07/12/17 17:54 Last Admin: 05/19/17 20:49 Dose: 5 mg General: alert HEENT: NC/AT, PERRLA Neck: Supple Lungs: CTAB Cardiovascular: RRR, Normal S1, Normal S2, without murmur Abdomen: soft, non-tender, non-distended, positive bowel sound Extremities: excoriation Neurological: alert, other Internal Medicine Assmt/Plan - Assessment Assessment: GERD HTN PUD SCHIZOAFFECTIVE DISORDER TACHYCARDIA HYPOKALEMIA HYPONATREMIA MILD PROTEIN CALORIE MALNUTRITION WITH LOW ALBUMIN CONSTIPATION SEIZURE HYPERCHOLESTEREMIA - Plan Plan: dc planning today Nutritional Asmnt/Malnutr-PDOC - Dietary Evaluation Malnutrition Findings (Please click <Entered> for more info): Nutritional Asmnt/Malnutrition Start: 05/16/17 09: 17 Text: Status: Complete Freq: Document 05/16/17 09:17 MMULHERN (Rec: 05/16/17 09:31 KLAUDIA SMITH- FNS1) Nutritional Asmnt/Malnutrition Patient General Information Nutritional Screening Moderate Risk Diagnosis Schizophrenia, agitation, psychosis Pertinent Medical Hx/Surgical Hx Cirrhosis of liver, GERD, intellectual disabilities, abnormal posture, anxiety Subjective Information Patient was admitted from SNF. Patient seen walking in the halls at time of visit. Current Diet Order/ Nutrition Support Mechanical soft chopped APRIL Patient / S.O Can't verbalize diet edu Pertinent Medications colace, omega 3, protonix, miralax, metamucil Pertinent Labs 05/12: Na 133, K 3.4 Nutritional Hx/Data Height 5 ft 8 in Height (Calculated Centimeters) 172.7 Current Weight (lbs) 140 lb Weight (Calculated Kilograms) 63.5 Weight (Calculated Grams) 58529.9 [place] Body Weight 154 % [place] Body Weight 90 Body Mass Index (BMI) 21.2 Weight Status Approriate GI Symptoms GI Symptoms None Last BM Prior to admission Difficult in: None Food Allergies No Cultural/Ethnic/Pent[employer]al Belief None noted Usual diet at home Regular Skin Integrity/Comment: Nima 20, intact Current %PO Fair (50-74%) Estimated Nutritional Goals BEE in Kcals: Using Current wt Calories/Kcals/Kg 25-30kcal/kg Kcals Calculated 2999-8634 kcal/day Protein: Using Current wt Protein g/k.8-1 gm/kg Protein Calculated 50-65 gm/day Fluid: ml 0609-5717 ml/day (1 ml/kcal) Nutritional Problem 1. Problem Problem Altered nutrition related lab values related to Etiology electrolyte imbalance aeb Signs/Symptoms: K 3.4, Na 133 Intervention/Recommendation Comments 1. Continue Mechanical soft, chopped, APRIL diet as tolerated by patient. 2. MD to consider fluid restriction if Na does not normalize. 3. Increase intake of potassium rich foods. Expected Outcomes/Goals Expected Outcomes/Goals Nutrition related labs normalize, weight stable, oral intake to meet > 75% of nutrient needs.
--- NOTE | 2017-05-22 01:49 | Progress Notes ---
DATE: 05/21/2017 SUBJECTIVE: Staff was spoken to. The patient is interviewed. Mood is noted to be anxious. Affect is appropriate. Not suicidal or homicidal. The patient has paranoid delusions, but denies any command hallucinations. No side effects to the medications are noted. The patient has been able to participate in the groups and verbalize the concerns. ASSESSMENT: The patient is stabilizing. PLAN: To discharge the patient today back to [facility] and follow up on an outpatient basis. JOB# [id number]
--- NOTE | 2017-05-23 17:42 | Discharge Summary ---
DATE OF DISCHARGE: 05/21/2017 IDENTIFYING DATA: The patient is a 57-year-old male, resident of [facility]. Information obtained by directly interviewing the patient as well as reviewing the admission papers and they are reliable. JUSTIFICATION OF HOSPITALIZATION: The patient is admitted here on an involuntary basis in view of his acute agitation. CHIEF COMPLAINT: Staff was spoken to. The patient is interviewed. DIAGNOSES AT THE TIME OF ADMISSION: 1. Schizoaffective disorder. AXIS II: None. AXIS III: As per Dr. Person. HISTORY OF PRESENT ILLNESS: Please refer to the 05/13/2017 dictation done by me. Physical examination was done by Dr. Person and is noted to be significant for hypertension, GERD, peptic ulcer disease, hypokalemia, hyponatremia, and seizure disorder. HOSPITAL COURSE AND RESPONSE TO TREATMENT: The patient has been closely monitored on the inpatient unit, provided with supportive psychotherapy. The patient has been continued on his Clozaril which was gradually increased to 400 mg. The patient has been closely monitored for any seizures. The patient started to do fairly well and the patient was finally discharged to [facility] on 05/21/2017 with recommendation that he is going to be seeking treatment on outpatient basis. MENTAL STATUS EXAMINATION: At the time of the discharge, the patient's mood to be anxious. Affect is appropriate. Not suicidal or homicidal. Coping skills are noted to be fair. Sleep and appetite are also noted to be improving. No side effects to the medications are noted. CONDITION: At the time of the discharge is noted to be stable. DIAGNOSES AT THE TIME OF DISCHARGE: AXIS I: Schizoaffective disorder. AXIS II: None. AXIS III: Seizure disorder, gastroesophageal reflux disease, and peptic ulcer disease. HOSPITAL COURSE AND RESPONSE TO TREATMENT. The patient is fairly stable at the time of the discharge. Condition at the time of discharge noted to be safe. AFTERCARE PLAN: The patient is referred to be followed up on an outpatient basis at [facility] by Dr. Hernandez. JOB# [id number]
== END 2017-05-21 17:30 | disposition home or self-care (01) | DRG 885 ==
LOC: ER 12:47 → GERO 17:04
DX: F25.9 Schizoaffective disorder, unspecified (principal); E44.1 Mild protein-calorie malnutrition; E87.1 Hypo-osmolality and hyponatremia; K21.9 Gastro-esophageal reflux disease without esophagitis; I10 Essential (primary) hypertension; K27.9 Peptic ulcer, site unspecified, unspecified as acute or chronic, without hemorrhage or perforation; E87.6 Hypokalemia; G40.909 Epilepsy, unspecified, not intractable, without status epilepticus; K59.00 Constipation, unspecified; F17.210 Nicotine dependence, cigarettes, uncomplicated; E78.00 Pure hypercholesterolemia, unspecified; R00.0 Tachycardia, unspecified; Z68.21 Body mass index [BMI] 21.0-21.9, adult; Z88.8 Allergy status to other drugs, medicaments and biological substances
CPT/HCPCS: 36415-UA; 80053-TC; 80061-TC; 81001-TC; 84443-TC; 85025-TC; 86592-TC; 93005; Z7610

== ENCOUNTER 2017-11-12 18:26 | Inpatient (IN) | payer MEDICARE, MEDICAID ==
--- NOTE | 2017-11-12 20:36 | ED Physician Chart ---
ED Chief Complaint/HPI - Patient Information Date Seen:: 11/12/17 Time Seen:: 20:15 Chief Complaint:: increased agitation History of Present Illness:: The mother is the historian and states she was told patient he has been throwing things at his extended care facility. Allergies:: Allergies Allergy/AdvReac Type Severity Reaction Status Date / Time calcium Allergy Verified 11/12/17 20:17 chlorpromazine Allergy Verified 11/12/17 20:17 fluphenazine Allergy Verified 11/12/17 20:17 haloperidol [From Haldol] Allergy Verified 11/12/17 20:17 sulfamethoxazole Allergy Verified 11/12/17 20:17 [From Bactrim] trimethoprim [From Bactrim] Allergy Verified 11/12/17 20:17 Vitals:: Vital Signs - 8 hr 11/12/17 19:50 Temp 98.2 F HR 78 RR 18 BP 101/67 O2 Sat % 97 ED Review of Systems - Review of Systems General/Constitutional: No fever, No chills, No weight loss, No weakness, No diaphoresis, No edema, No loss of appetite Skin: No skin lesions, No rash, No bruising Head: No headache, No light-headedness Eyes: No loss of vision, No pain, No diplopia ENT: No earache, No nasal drainage, No sore throat, No tinnitus Neck: No neck pain, No swelling, No thyromegaly, No stiffness, No mass noted Cardio Vascular: No chest pain, No palpitations, No PND, No orthopnea, No edema Pulmonary: No SOB, No cough, No sputum, No wheezing GI: No nausea, No vomiting, No diarrhea, No pain, No melena, No hematochezia, No constipation, No hematemesis G/U: No dysuria, No frequency, No hematuria Musculoskeletal: No bone or joint pain, No back pain, No muscle pain Endocrine: No polyuria, No polydipsia Psychiatric: Prior psych history, Anxiety Hematopoietic: No bruising, No lymphadenopathy Allergic/Immuno: No urticaria, No angioedema Neurological: No syncope, No focal symptoms, No weakness, No paresthesia, No headache, No seizure, No dizziness, No confusion, No vertigo ED Past Medical History - Past Medical History Past Medical History: HTN, Asthma/COPD, Dyslipidemia, PUD/GERD, Seizures, Dementia Family History: HTN Social History: Smoker, Care Facility Surgical History: None Psychiatricy History: Schizophrenia Family Medical History - Family Member Mother History Unknown: Yes Ethnicity: Unknown Living Status: Unknown Hx Family Cancer: (unknown) Hx Family Coronary Artery Disease: (unknown) Hx Family Congestive Heart Failure: (unknown) Hx Family Hypertension: (unknown) Hx Family Stroke: (unknown) Hx Family Diabetes: (unknown) Hx Family Seizures: (unknown) Hx Family Dementia: (unknown) Hx Family AIDS: (unknown) Hx Family COPD: (unknown) Hx Family Hepatitis: (unknown) Hx Family Psychiatric Problems: (unknown) Hx Family Tuberculosis: (unknown) ED Labs/Radiology/EKG Results - Lab Results Results: Laboratory Results - last 24 hr 11/12/17 11/12/17 20:35 20:35 WBC 6.5 RBC 4.19 L Hgb 11.1 L Hct 33.4 L MCV 79.7 L MCH 26.6 MCHC Differential 33.4 RDW 13.4 Plt Count 320 MPV 6.7 Neutrophils % 42.7 Lymphocytes % 46.0 Monocytes % 8.9 Eosinophils % 2.3 Basophils % 0.1 Sodium 131 L Potassium 3.5 Chloride 95 L Carbon Dioxide 28.0 Anion Gap 11.5 BUN 15 Creatinine 0.7 Est GFR ( Amer) > 60.0 Est GFR (Non-Af Amer) > 60.0 BUN/Creatinine Ratio 21.4 Glucose 104 Calcium 9.1 Total Bilirubin 0.3 AST 23 ALT 14 Alkaline Phosphatase 48 Total Protein 6.7 Albumin 3.8 L Globulin 2.9 Albumin/Globulin Ratio 1.3 Triglycerides 199 H Cholesterol 192 LDL Cholesterol Direct 109 HDL Cholesterol 55 ED Septic Shock - . Is Septic Shock (SBP<90, OR Lactate>4 mmol\L) present?: No - <6hrs of presentation: Vital Signs: Vital Signs - 8 hr 11/12/17 19:50 Temp 98.2 F HR 78 RR 18 BP 101/67 O2 Sat % 97 ED Reassessment (Disposition) - Reassessment Reassessment Condition:: Unchanged - Diagnosis Diagnosis:: Aggressive behavior; dementia - Patient Disposition Admitted to:: [facility] Admitting Medical Physician:: Lisandro Rousseau Admitting Psych Physician:: Prieto Parsons Condition at Disposition:: Stable, Unchanged
[2017-11-12 20:43] LABS: % BASOPHILS 0.1 % (0.0-2.0); % EOSINOPHILS 2.3 % (0.0-5.0); % MONOCYTES 8.9 % (2.0-10.0); % NEUTROPHILS 42.7 % (40.0-80.0); EOSINOPHILE ABSOLUTE 0.1 Th/cmm (0.1-0.4); HEMATOCRIT 33.4 % (41.0-60); HEMOGLOBIN 11.1 gm/dL (12-16); MEAN CELL VOLUME 79.7 fl (80-99); MEAN CORPUSCULAR HEMOGLOBIN 26.6 pg (26.0-30.0); MEAN CORPUSCULAR HGB CONC 33.4 pg (28.0-36.0); MEAN PLATELET VOLUME 6.7 fl; MONOCYTE ABSOLUTE 0.6 Th/cmm (0.3-1.0); NEUTROPHILE ABSOLUTE 2.8 Th/cmm (1.8-8.0); PLATELET COUNT 320 Th/cmm (150-400); RED BLOOD COUNT 4.19 Mil/cmm (4.30-5.70); RED CELL DISTRIBUTION WIDTH 13.4 % (11.5-20.0); WHITE BLOOD COUNT 6.5 Th/cmm (4.8-10.8)
[2017-11-12 21:01] LABS: ALB/GLOB RATIO 1.3 (1.0-1.8); ALBUMIN 3.8 gm/dL (4.2-5.5); ALKALINE PHOSPHATASE 48 U/L (34-104); ANION GAP 11.5 (7.0-16.0); BILIRUBIN,TOTAL 0.3 mg/dL (0.3-1.0); BUN - UREA NITROGEN 15 mg/dL (7-25); CALCIUM SERUM 9.1 mg/dL (8.6-10.3); CHLORIDE 95 mEq/L (98-107); CHOLESTEROL 192 mg/dL (<200); CREATININE - SERUM 0.7 mg/dL (0.7-1.3); GFR AFRICAN-AMERICAN > 60.0 ml/min (>90); GFR NON AFRICAN-AMERICAN > 60.0 ml/min; GLUCOSE 104 mg/dL (70-105); HDL -HIGH DENSITY LIPOPROTEIN 55 mg/dL (23-92); POTASSIUM SERUM 3.5 mEq/L (3.5-5.1); SGOT 23 U/L (13-39); SGPT/ALT 14 U/L (7-52); SODIUM SERUM 131 mEq/L (136-145); TOTAL PROTEIN,SERUM 6.7 gm/dL (6.0-8.3); TRIGLYCERIDES 199 mg/dL (<150)
[2017-11-12] MEDS ORDERED: Maalox 30 mL Cup PO PRN (23:49)
[2017-11-12] MEDS ORDERED: Magnesium Hydroxide (MOM) 30 mL UDC PO PRN (23:49)
[2017-11-13] MEDS: Multivitamin Tab PO SCH (08:38)
[2017-11-13] MEDS ORDERED: Magnesium Hydroxide (MOM) 30 mL UDC PO PRN (09:05)
[2017-11-13] MEDS ORDERED: Fleet Enema 135 mL RC PRN (09:05)
--- NOTE | 2017-11-13 10:46 | History & Physical ---
ADMIT DATE: 11/13/2017 PATIENT'S IDENTIFICATION: A 57-year-old male. CHIEF COMPLAINT: "I don't know." HISTORY OF PRESENT ILLNESS: A 57-year-old male who was a resident of custodial, sent to Emergency Room after the patient was throwing things at the extended care facility. The patient was extremely agitated and the patient was evaluated in the Emergency Room and subsequently admitted for further treatment. PAST MEDICAL HISTORY: Remarkable for: 1. Hypertension. 2. Hyperlipidemia. 3. GERD. 4. Seizure disorder. 5. Psychotic disorder. 6. Questionable dementia. 7. History of COPD. MEDICATIONS AT HOME: The patient is taking multiple medications, which has been reviewed and reconciled. ALLERGIES: The patient is allergic to CHLORPROMAZINE, FLUPHENAZINE, HALDOL, BACTRIM. SOCIAL HISTORY: The patient is a residence of custodial. The patient has history of smoking cigarette. No alcohol or drug use. FAMILY MEDICAL HISTORY: Remarkable for hypertension. REVIEW OF SYSTEMS: The patient currently denies any headache, blurred vision, double vision, dysphagia, odynophagia, runny nose, stuffy nose, fever, chills, cough, chest pain, shortness of breath, palpitation, dizziness, nausea, vomiting, diarrhea, dysuria, hematuria, hematochezia, melena. No history of any seizure or syncopal episode. PHYSICAL EXAMINATION: GENERAL: The patient is alert, awake, lying in the bed. VITAL SIGNS: Temperature 98.2, pulse is 78, respiratory rate is 18, blood pressure 101/67. HEENT: Normocephalic, atraumatic. Extraocular muscles are intact. Tongue was pink and coated. Poor dentition noted. No oral lesion, no exudate. No sinus tenderness. External auditory canal and tympanic membranes are well visualized. NECK: Supple, no JVD, no hepatojugular reflex, no lymphadenopathy, thyromegaly, or carotid bruit. HEART: Both heart sounds are regular. No S3, no S4, no murmur. CHEST: Lung equal in expansion, no wheezing, no crackles. ABDOMEN: Soft. No guarding, no rigidity. Liver and spleen palpable. No palpable mass. EXTREMITIES: No edema, no cyanosis or clubbing. Peripheral pulses +2. No calf tenderness noted. NEUROLOGIC: Alert, awake, follows commands. No gross neuro deficit noted. AVAILABLE DIAGNOSTIC DATA: Performed in the Emergency Room, which white count of 6.15, hemoglobin 11.1, platelet count of 320. BUN and creatinine are 15 and 0.7. TSH of 2.5, triglyceride 199. CLINICAL IMPRESSIONS: 1. Acute exacerbation of psychotic disorder. 2. Hypertension. 3. Seizure disorder. 4. Psychotic disorder. 5. Asthma, chronic obstructive pulmonary disease. 6. Gastroesophageal reflux disease. 7. Degenerative joint disease. 8. High risk for AWOL. PLAN: 1. Psychotic evaluation and management deferred to psychiatrist. 2. The patient will be placed on her home medication as patient was receiving. 3. Seizure medication will be per order. 4. Seizure precaution will be given. 5. General nursing care. 6. We will continue to follow this patient during the stay in the hospital. JOB# [id number]
--- NOTE | 2017-11-13 12:36 | History & Physical ---
ADMIT DATE: 11/12/2017 IDENTIFYING INFORMATION: The patient is a 57-year-old male. CHIEF COMPLAINT: No answer. HISTORY OF PRESENT ILLNESS: The patient was brought from a prison after the patient was throwing things at the extended care facility. He was extremely agitated. He was seen in the Emergency Room and admitted for further treatment. The patient himself was a poor historian. He was pacing the hallway checking doors. He was unable to tell me the date, where he is, why he is here, unable tell me where he lives. He denies that he was drinking alcohol or drugs. He denies any intent to harm self or anybody; however, he was a very poor historian with history of agitation, irritability, questionable dementia. PAST PSYCHIATRIC HISTORY: Unobtainable, but there is a question of possible dementia and psychosis. MEDICAL HISTORY: Hypertension, hyperlipidemia, GERD, seizure disorder and history of COPD. ALLERGIES: He is allergic to CHLORPROMAZINE, FLUPHENAZINE, HALDOL AND BACTRIM. FAMILY AND SOCIAL HISTORY: Unobtainable. The patient is single, never , no children. He reports a 12th grade education. Denies substance abuse; however, he is not a very good historian. MENTAL STATUS EXAMINATION: The patient is appropriately dressed, not well groomed who looks disheveled, disorganized, internally preoccupied. Unable to tell me the date, where he is, why he is here, unable to tell me his age. He is not sure ____. His long-term and short-term memory is poor. Unable to tell me why he is here or tell me his exact age. His insight and judgment is impaired. IMPRESSION: AXIS I: Psychosis, not otherwise specified, possible dementia. MEDICAL DIAGNOSES: As per medical doctor. The patient with a seizure disorder, hypertension, chronic obstructive pulmonary disease. His assets, he is accepting treatment. Negative for coping skills. INITIAL TREATMENT PLAN: His current medications, he is on Coreg 12.5 mg twice a day, docusate sodium 100 mg daily, fenofibrate 134 mg at bedtime, Keppra 500 mg q.12 hours, lorazepam 0.5 mg every 4 hours as needed. He is also on multivitamin one tablet daily, Protonix 40 mg daily and Metamucil 1 packet daily, Zoloft 100 mg a day. The patient is on vitamin B complex 1 tablet daily, Ambien 0.5 mg at bedtime as needed for lack of sleep. The patient will be continued with his medication. We will watch patient and adjust medication accordingly. He is a high fall risk because his seizure as well because of his medication. ESTIMATED LENGTH OF STAY: 3-7 days. DISCHARGE CRITERIA: Decreasing agitation, psychosis after discharge, outpatient treatment. [facility]# [id number]
[2017-11-13] MEDS: POLYETHYLENE GLYCOL 3350 17 GM PACK PO SCH (16:24)
[2017-11-13] MEDS: Fenofibrate, Micronized 134 mg Cap PO SCH (21:09)
[2017-11-14] MEDS: Vitamin B Complex w/Vitamin C Tab PO SCH (09:47)
[2017-11-14] MEDS: Pantoprazole 40 mg EC Tab PO SCH (09:47)
[2017-11-14] MEDS: Multivitamin Tab PO SCH (09:47)
[2017-11-14] MEDS: POLYETHYLENE GLYCOL 3350 17 GM PACK PO SCH ×2 (09:48→16:27)
[2017-11-14 17:11] LABS: A1C % 5.5 % (4.0-6.0)
--- NOTE | 2017-11-14 20:20 | Progress Notes ---
DATE: 11/14/2017 SUBJECTIVE: The patient was seen and examined. The patient is lying in the bed. Discussed with nursing staff about overnight events. The patient is currently taking his psychiatric medication. PHYSICAL EXAMINATION: VITAL SIGNS: Temperature 98, pulse is 74, respiratory rate 18, blood pressure 130/80. HEENT: No facial asymmetry. NECK: Supple, no JVD. HEART: Regular. CHEST: Lung equal in expansion. LUNGS: No wheezing, no crackles. ABDOMEN: Soft, no guarding or rigidity. Bowel sounds heard. No palpable mass. EXTREMITIES: No edema. NEUROLOGIC: Nonfocal. CLINICAL IMPRESSION: 1. Psych disorder. 2. Hypertension. 3. Seizure disorder. 4. Asthma. 5. Gastroesophageal reflux disease. 6. Degenerative joint disease. PLAN: 1. Psych medication. 2. Psych followup. 3. Antihypertensive medicine. 4. Seizure medication. 5. Seizure precaution. 6. P.r.n. inhalation therapy. 7. PPI. 8. General nursing care. 9. Fall precautions. 10. Care plan reviewed and discussed with staff. JOB# [id number]
--- NOTE | 2017-11-14 20:51 | Progress Notes ---
DATE: 11/14/2017 SUBJECTIVE: The patient was seen and evaluated. The patient's chart reviewed. The patient was initially brought in here. He is a 57-year-old male from a prison. He was agitated, throwing things at extended care facility. He is nonverbal. Today on [id number] evaluation, the patient is nonverbal, smiles, does not give much more information. CURRENT MEDICATIONS: The patient is on Coreg 12.5 b.i.d., Keppra, lorazepam as needed, Protonix, Zoloft 100 mg a day, sodium phosphate, Ambien as needed. MENTAL STATUS EXAMINATION: Despondent, engage. Nonverbal. ASSESSMENT AND PLAN: The patient is a 57-year-old male with history of near cognitively impaired, developmental delaying. We will continue with the current medication regimen, if he finds himself agitated and irritable, needing a lot of redirection. JOB# [id number]
[2017-11-14] MEDS: Fenofibrate, Micronized 134 mg Cap PO SCH (21:32)
[2017-11-15] MEDS: Pantoprazole 40 mg EC Tab PO SCH (09:46)
[2017-11-15] MEDS: Multivitamin Tab PO SCH (09:46)
[2017-11-15] MEDS: Vitamin B Complex w/Vitamin C Tab PO SCH (09:46)
[2017-11-15] MEDS: POLYETHYLENE GLYCOL 3350 17 GM PACK PO SCH ×2 (09:47→17:21)
[2017-11-15] MEDS: Fenofibrate, Micronized 134 mg Cap PO SCH (20:58)
--- NOTE | 2017-11-16 03:05 | Progress Notes ---
DATE: The patient was seen, chart reviewed, and discussed with staff. The patient currently is nonverbal, refusing to participate and answering any questions. According to staff, he has been redirectable, not required any p.r.n. medications, and generally self-isolated in his room. He has been compliant with his medications. Appetite and sleep have been stable. PLAN: The patient continues to be cognitively impaired, unable to provide for himself. It is felt that he will require inpatient care center treatment. We will monitor patient on a daily basis for response to medications and titrate medications as needed. JOB# [id number]
[2017-11-16] MEDS: Vitamin B Complex w/Vitamin C Tab PO SCH (09:45)
[2017-11-16] MEDS: Pantoprazole 40 mg EC Tab PO SCH (09:45)
[2017-11-16] MEDS: POLYETHYLENE GLYCOL 3350 17 GM PACK PO SCH ×2 (09:47→17:19)
[2017-11-16] MEDS: Multivitamin Tab PO SCH (09:47)
[2017-11-16] MEDS: Fenofibrate, Micronized 134 mg Cap PO SCH (20:46)
--- NOTE | 2017-11-16 23:33 | Progress Notes ---
DATE: 11/16/2017 SUBJECTIVE: Case was discussed with staff of the patient. The patient continues to be disorganized, hard to redirect. Continues to be unpredictable, impulsive, continues to be unable to make safe plan for self-care or participate in meaningful conversation. He is on Zoloft 100 mg a day. I will be adding a small dose of Abilify for him to help with his disorganized behavior, 2.5 mg of Abilify daily and we will ____ side effects and we will continue to work with the patient in group therapy, milieu therapy, and adjust the medication as needed. JOB# [id number]
--- NOTE | 2017-11-17 01:20 | Progress Notes ---
DATE: 11/16/2017 MEDICAL PROGRESS NOTE SUBJECTIVE: The patient seen and examined. The patient is lying in the bed. The patient denies any chest pain, shortness of breath, palpitation, dizziness, nausea, vomiting, or diarrhea. OBJECTIVE: VITAL SIGNS: Temperature 98, pulse is 65, respiratory rate 18, and blood pressure 111/59. HEENT: No facial asymmetry. NECK: Supple, no JVD. HEART: Regular. CHEST: Lung equal in expansion. LUNGS: No wheezing, no crackles. ABDOMEN: Soft. No guarding or rigidity. Bowel sounds are not palpable. EXTREMITIES: No edema, no cyanosis, no calf tenderness. CLINICAL IMPRESSION: 1. Hypertension. 2. Seizure disorder. 3. Gastroesophageal reflux disease. 4. Asthma, chronic obstructive pulmonary disease. 5. Degenerative joint disease. PLAN: 1. Psych medication. 2. Psych followup. 3. Monitor blood pressure. 4. Seizure medication. 5. Seizure precautions. 6. Proton pump inhibitor. 7. General nursing care. 8. Nutritional support. 9. Fall precautions. 10. Care plan reviewed. JOB# [id number]
[2017-11-17] MEDS: Pantoprazole 40 mg EC Tab PO SCH (09:53)
[2017-11-17] MEDS: Multivitamin Tab PO SCH (09:54)
[2017-11-17] MEDS: Vitamin B Complex w/Vitamin C Tab PO SCH (09:55)
[2017-11-17] MEDS: POLYETHYLENE GLYCOL 3350 17 GM PACK PO SCH ×2 (09:56→17:09)
[2017-11-17] MEDS: Fenofibrate, Micronized 134 mg Cap PO SCH (20:17)
--- NOTE | 2017-11-17 21:43 | Progress Notes ---
DATE: 11/17/[address] Parsons. Case discussed with staff of the patient, reviewed records. The patient continues to be confused, unpredictable, impulsive, pacing the hallway, unable to participate in meaningful conversation or make safe plan for self-care. He continues to have poor insight, unpredictable, impulsive, needing redirection. I will be initiating him on Abilify because of his agitated behavior. He is having difficulty expressing himself, needing redirection, unpredictable impulsive, and we will continue to work with the patient in group therapy, milieu therapy, and adjust the medication as needed. JOB# [id number]
[2017-11-18] MEDS: POLYETHYLENE GLYCOL 3350 17 GM PACK PO SCH ×2 (10:01→17:32)
[2017-11-18] MEDS: Multivitamin Tab PO SCH (10:03)
[2017-11-18] MEDS: Pantoprazole 40 mg EC Tab PO SCH ×2 (10:03→10:19)
[2017-11-18] MEDS: Vitamin B Complex w/Vitamin C Tab PO SCH (10:04)
[2017-11-18] MEDS: Fenofibrate, Micronized 134 mg Cap PO SCH (20:29)
--- NOTE | 2017-11-19 01:12 | Progress Notes ---
DATE: 11/18/2017 SUBJECTIVE: Chart reviewed and the patient interviewed. Also discussed the patient's condition with the staff and reviewed records and labs. The patient is still pacing up and down the unit. Also, personal hygiene is very poor and the patient has been peeing and poop popping all over the place. The patient also has been grabbing coffee from other patients' hands and from the tables. He also seems to be preoccupied and he still needs lots of redirections. At the same time, the patient is nonverbal because of his developmental disability. ASSESSMENT: The patient is still agitated and psychotic. TREATMENT PLAN: Continue to monitor his behavior and his condition closely. Also, continue to work on his poor impulse control. The patient will start Abilify today. At the same time, we will continue to monitor his aggression and agitation closely. Estimated length of stay 4-6 days. JOB# [id number]
--- NOTE | 2017-11-19 03:43 | Progress Notes ---
DATE: 11/18/2017 IDENTIFICATION: A 57-year-old male. SUBJECTIVE: The patient seen and examined. The patient is lying in the bed. No new event. The patient remained hemodynamically stable. MAR has been reviewed. PHYSICAL EXAMINATION: VITAL SIGNS: Temperature 98.1, pulse is 74, respiratory rate 18, blood pressure 105/62. HEENT: No facial asymmetry. NECK: Supple, no JVD. HEART: Both heart sounds are regular. CHEST: Lungs equal in expansion. No wheezing, no crackles. ABDOMEN: Soft. No guarding, no rigidity. Bowel sounds are present. No palpable mass. EXTREMITIES: No edema. CLINICAL IMPRESSION: 1. Hypertension. 2. Seizure disorder. 3. Chronic obstructive pulmonary disease. 4. Gastroesophageal reflux disease. 5. Degenerative joint disease. 6. Psych disorder. PLAN: 1. Monitor blood pressure. 2. Antihypertensive Medicine. 3. Seizure medication. 4. Seizure precaution. 5. Psych followup. 6. Proton pump inhibitor. 7. Fall precautions. 8. General nursing care. 9. The patient will be followed by us during the stay in the hospital. JOB# [id number]
[2017-11-19] MEDS: Pantoprazole 40 mg EC Tab PO SCH (09:54)
[2017-11-19] MEDS: Multivitamin Tab PO SCH (09:54)
[2017-11-19] MEDS: Vitamin B Complex w/Vitamin C Tab PO SCH (09:54)
[2017-11-19] MEDS: POLYETHYLENE GLYCOL 3350 17 GM PACK PO SCH (16:17)
--- NOTE | 2017-11-19 21:28 | Progress Notes ---
DATE: SUBJECTIVE: Chart reviewed and the patient interviewed. Also discussed the patient's condition with the staff and reviewed records and labs. The patient is still confused and disheveled. The patient also is trying to steal coffee from other patients. The patient also is in angry and in irritable mood and he is agitated. He also is still having difficulty following staff directions and staff instructions. The patient also needs a lot of close monitoring because of his developmental disability and difficulty following directions as well as unpredictable behavior. ASSESSMENT: The patient is still agitated and psychotic. TREATMENT PLAN: We will increase Abilify to 5 mg every day. Also, continue to monitor behavior and medications closely and continue to follow up. [facility]# [id number]
[2017-11-20] MEDS: POLYETHYLENE GLYCOL 3350 17 GM PACK PO SCH ×3 (09:55→17:24)
[2017-11-20] MEDS: Multivitamin Tab PO SCH (09:58)
[2017-11-20] MEDS: Pantoprazole 40 mg EC Tab PO SCH (09:59)
[2017-11-20] MEDS: Vitamin B Complex w/Vitamin C Tab PO SCH (09:59)
[2017-11-20] MEDS: Fenofibrate, Micronized 134 mg Cap PO SCH (21:29)
--- NOTE | 2017-11-20 21:53 | Progress Notes ---
DATE: SUBJECTIVE: Chart reviewed and the patient interviewed. Also discussed the patient's condition with the staff and reviewed records and labs. The patient is still withdrawn and is still confused. The patient also seems to be disoriented. The patient also still have flat affect and he still needs redirections, but he wants to be left alone. The patient also at times gets angry and agitated easily. Otherwise, the patient continues to comply with taking his medications with no side effects of medications. ASSESSMENT: The patient is still confused and needs lots of redirections. TREATMENT PLAN: Continue monitoring his behavior and his condition closely. Also, continue Zoloft and Abilify, and continue adjusting the dose, and follow up closely. JOB# [id number]
--- NOTE | 2017-11-21 00:15 | Progress Notes ---
DATE: 11/20/2017 SUBJECTIVE: The patient is seen and examined. The patient is ambulatory. No new event. Nursing notes an MAR reviewed. OBJECTIVE: VITAL SIGNS: On today's exam, temperature 97.9, pulse is 66, respiratory is 18, blood pressure is 110/60. HEENT: No facial asymmetry. NECK: Supple, no JVD. HEART: Regular. CHEST: Lung equal in expansion. No wheezing, no crackles. ABDOMEN: Soft. No guarding, no rigidity. Bowel sounds are present. No palpable mass. EXTREMITIES: No edema. NEUROLOGIC: Alert, awake, follows command. CLINICAL IMPRESSION: 1. Psychotic disorder exacerbation. 2. Hypertension. 3. Seizure disorder. 4. Asthma. 5. GERD. 6. Degenerative joint disease. PLAN: 1. Psych medication. 2. Psych followup. 3. Monitor blood pressure. 4. Seizure medication. 5. Seizure precaution. 6. Antihypertensive medicine. 7. P.r.n. inhaler. 8. Proton pump inhibitor. 9. General nursing care. 10. Care plan reviewed and discussed with staff. JOB# [id number]
[2017-11-21] MEDS: POLYETHYLENE GLYCOL 3350 17 GM PACK PO SCH ×2 (08:49→16:30)
[2017-11-21] MEDS: Multivitamin Tab PO SCH (08:55)
[2017-11-21] MEDS: Pantoprazole 40 mg EC Tab PO SCH (08:57)
[2017-11-21] MEDS: Vitamin B Complex w/Vitamin C Tab PO SCH (08:58)
[2017-11-21] MEDS: Fenofibrate, Micronized 134 mg Cap PO SCH (20:17)
--- NOTE | 2017-11-21 21:42 | Progress Notes ---
DATE: Covering for Dr. Parsons. Case was discussed with staff of the patient, reviewed records. This is a well-known case to me. I have seen him before covering for Dr. Parsons. The patient continues to be disoriented. Continues to have flat affect, internally preoccupied. Continues with direction. Continues to have episodes of being in the agitated behavior. The patient is confused. He is compliant with the medication with no side effects, no sedation, no nausea, no extrapyramidal symptoms. He is a high fall risk because of his medication and confusion. His current medications, Abilify 5 mg daily and Coreg 12.5 mg twice a day, fenofibrate 134 mg at bedtime and Keppra 500 mg twice a day. He is on multivitamins 1 tablet daily, pantoprazole 40 mg daily and Metamucil 1 packet daily, Zoloft 100 mg daily and Ambien 5 mg at bedtime as needed, vitamin B complex 1 tablet daily. No side effects with the medication, no sedation, no nausea and no extrapyramidal symptoms. We will continue to work with the patient in group therapy, milieu therapy, and adjust the medication as needed. JOB# [id number]
[2017-11-22] MEDS: POLYETHYLENE GLYCOL 3350 17 GM PACK PO SCH ×2 (08:01→16:36)
[2017-11-22] MEDS: Pantoprazole 40 mg EC Tab PO SCH (08:01)
[2017-11-22] MEDS: Multivitamin Tab PO SCH (08:02)
[2017-11-22] MEDS: Vitamin B Complex w/Vitamin C Tab PO SCH (09:00)
[2017-11-22] MEDS: Fenofibrate, Micronized 134 mg Cap PO SCH (20:35)
--- NOTE | 2017-11-22 21:16 | Progress Notes ---
DATE: 11/22/2017 Case was discussed with staff of the patient, reviewed records. The patient continues to be uncooperative, unable to participate in meaningful conversation, pacing the unit, no eye contact, whatsoever, demented, confused, internally preoccupied. He is sleeping better, eating better. He is compliant with the medication with no side effects, no sedation, no nausea, no extrapyramidal symptoms. We will continue outpatient group therapy, milieu therapy, and adjust the medications as needed. JOB# [id number]
[2017-11-23] MEDS: POLYETHYLENE GLYCOL 3350 17 GM PACK PO SCH ×3 (08:28→16:17)
[2017-11-23] MEDS: Pantoprazole 40 mg EC Tab PO SCH (08:29)
[2017-11-23] MEDS: Vitamin B Complex w/Vitamin C Tab PO SCH (08:29)
[2017-11-23] MEDS: Multivitamin Tab PO SCH (08:30)
[2017-11-23] MEDS: Fenofibrate, Micronized 134 mg Cap PO SCH (20:30)
[2017-11-24] MEDS: Vitamin B Complex w/Vitamin C Tab PO SCH (08:13)
[2017-11-24] MEDS: POLYETHYLENE GLYCOL 3350 17 GM PACK PO SCH ×2 (08:13→16:21)
[2017-11-24] MEDS: Multivitamin Tab PO SCH (08:15)
[2017-11-24] MEDS: Pantoprazole 40 mg EC Tab PO SCH (08:15)
--- NOTE | 2017-11-24 17:45 | Progress Notes ---
DATE: IDENTIFICATION: A 57-year-old male. SUBJECTIVE: The patient was seen and examined. The patient is lying in the bed. The patient has no new event. No new complaint. OBJECTIVE: VITAL SIGNS: Temperature 98.3, pulse 70, respiratory rate 18, blood pressure 100/68. HEENT: No facial asymmetry. NECK: Supple, no JVD. HEART: Regular. CHEST: Equal in expansion, no wheezing, no crackles. ABDOMEN: Soft. EXTREMITIES: No edema. NEUROLOGIC: Limited, but nonfocal. CLINICAL IMPRESSION: 1. Hypertension. 2. Seizure disorder. 3. Chronic obstructive pulmonary disease. 4. Gastroesophageal reflux disease. 5. Degenerative joint disease. 6. Psychotic disorder. PLAN: 1. Monitor blood pressure. 2. Antihypertensive medicine. 3. Seizure medication. 4. Seizure precaution. 5. Antireflux measures. 6. PPI. 7. P.r.n. inhalation therapy. 8. Psych medication. 9. Psych followup. 10. General nursing care. 11. Care plan reviewed and discussed with staff. JOB# [id number]
--- NOTE | 2017-11-24 19:30 | Progress Notes ---
DATE: 11/24/2017 SUBJECTIVE: Chart reviewed and the patient interviewed. Also, discussed the patient's condition with the staff and reviewed records and labs. The patient continued to be anxious and in irritable mood. Also, is still confused and has still difficulty following directions and he still needs lots of redirections. The patient also still gets angry and agitated easily. Also, has been trying to steal food and coffee from other patients. The patient also is wandering around the unit and still has unpredictable behavior. Otherwise, the patient is compliant with taking his medications with no side effects of medications. ASSESSMENT: The patient is still agitated and psychotic. TREATMENT PLAN: We will continue monitoring his behavior and condition closely. Also, we will continue adjusting psychotropic medications and Abilify was increased yesterday to 10 mg every day. Also, caseworker protective services in regard to discharge plans. JOB# [id number]
[2017-11-24] MEDS: Fenofibrate, Micronized 134 mg Cap PO SCH (20:18)
[2017-11-25] MEDS: Pantoprazole 40 mg EC Tab PO SCH (08:13)
[2017-11-25] MEDS: Multivitamin Tab PO SCH (08:13)
[2017-11-25] MEDS: Vitamin B Complex w/Vitamin C Tab PO SCH (08:13)
[2017-11-25] MEDS: POLYETHYLENE GLYCOL 3350 17 GM PACK PO SCH ×2 (08:15→17:36)
[2017-11-25] MEDS: Fenofibrate, Micronized 134 mg Cap PO SCH ×2 (21:15→21:57)
--- NOTE | 2017-11-26 00:37 | Discharge Summary ---
DATE OF DISCHARGE: PRIMARY DIAGNOSIS: Unspecified psychosis. REASON FOR HOSPITALIZATION: The patient was admitted to the hospital because the patient was throwing objects at the nursing facility where he lives and he was easily agitated and in angry and irritable mood. HOSPITAL COURSE: The patient continued to be agitated and in irritable mood. The patient also was restless. He needed lots of redirections. The patient was started on Zoloft and the patient was started on Abilify and the Abilify dose adjusted to 10 mg every day. Gradually, the patient's affect was brighter. The patient was less agitated and was calmer. Also, was interacting more appropriately. The patient was accepted by [facility] and the patient was discharged. Physical exam of the patient showed no major medical problems. Blood workup was monitored closely and the patient had no major medical problems. DISCHARGE PLAN: The patient discharged from the hospital and went to [facility] with plans for followup there. EXPECTED OUTCOME AFTER DISCHARGE: Fair if the patient continues to take his medications. JOB# [id number]
[2017-11-26] MEDS: Vitamin B Complex w/Vitamin C Tab PO SCH (08:32)
[2017-11-26] MEDS: Multivitamin Tab PO SCH (08:33)
[2017-11-26] MEDS: Pantoprazole 40 mg EC Tab PO SCH (08:33)
[2017-11-26] MEDS: POLYETHYLENE GLYCOL 3350 17 GM PACK PO SCH ×2 (08:33→16:44)
--- NOTE | 2017-11-26 10:32 | Progress Notes ---
DATE: 11/26/2017 CANCELLED DICTATION [facility]# [id number]
[2017-11-26] MEDS: Fenofibrate, Micronized 134 mg Cap PO SCH (20:38)
[2017-11-27] MEDS: POLYETHYLENE GLYCOL 3350 17 GM PACK PO SCH ×2 (08:20→16:20)
[2017-11-27] MEDS: Vitamin B Complex w/Vitamin C Tab PO SCH (08:21)
[2017-11-27] MEDS: Pantoprazole 40 mg EC Tab PO SCH (08:22)
[2017-11-27] MEDS: Multivitamin Tab PO SCH (08:22)
[2017-11-27] MEDS: Fenofibrate, Micronized 134 mg Cap PO SCH (20:36)
[2017-11-28] MEDS: Vitamin B Complex w/Vitamin C Tab PO SCH (08:12)
[2017-11-28] MEDS: Multivitamin Tab PO SCH (08:12)
[2017-11-28] MEDS: Pantoprazole 40 mg EC Tab PO SCH (08:13)
[2017-11-28] MEDS: POLYETHYLENE GLYCOL 3350 17 GM PACK PO SCH ×2 (08:16→16:48)
--- NOTE | 2017-11-28 10:15 | Progress Notes ---
DATE: 11/26/2017 SUBJECTIVE: Chart reviewed and the patient interviewed. Also discussed the patient's condition with the staff and reviewed records and labs. The patient is still withdrawn and is still isolative. The patient also still has episodes of anger and wants to be left alone. The patient also still needs redirections and is disheveled. Otherwise, the patient is compliant with taking his medications with no side effects of the medication. ASSESSMENT: The patient is still anxious and is still needs close monitoring. TREATMENT PLAN: We will continue to monitor the patient's behavior and condition closely. Also, continue to work on his ineffective coping and we will continue to follow up. [facility]# [id number]
[2017-11-28] MEDS: Fenofibrate, Micronized 134 mg Cap PO SCH (20:19)
[2017-11-29] MEDS: Pantoprazole 40 mg EC Tab PO SCH (10:16)
[2017-11-29] MEDS: Multivitamin Tab PO SCH (10:16)
[2017-11-29] MEDS: Vitamin B Complex w/Vitamin C Tab PO SCH (10:16)
[2017-11-29] MEDS: POLYETHYLENE GLYCOL 3350 17 GM PACK PO SCH ×2 (10:16→17:09)
--- NOTE | 2017-11-29 20:28 | Progress Notes ---
DATE: SUBJECTIVE: The patient was seen and evaluated. The patient's chart reviewed. Today on [id number] evaluation, the patient is withdrawn, disengaged, he gets off the room and does not engage in the interview and just refuses. MENTAL STATUS EXAMINATION: Refuses interview, observed to be disorganized, irritable, extremely poor insight and poor impulse control and not able to engage in a linear conversation. We will continue with primary psychiatrist's treatment plan and goals, which include Zoloft at 100 mg a day to target the patient's severe depression and the Abilify at 10 mg of medications recently adjusted and increased. JOB# [id number]
[2017-11-29] MEDS: Fenofibrate, Micronized 134 mg Cap PO SCH (21:12)
[2017-11-30] MEDS: Vitamin B Complex w/Vitamin C Tab PO SCH (09:43)
[2017-11-30] MEDS: Pantoprazole 40 mg EC Tab PO SCH (09:43)
[2017-11-30] MEDS: POLYETHYLENE GLYCOL 3350 17 GM PACK PO SCH ×2 (09:43→17:45)
[2017-11-30] MEDS: Multivitamin Tab PO SCH (09:44)
--- NOTE | 2017-11-30 19:44 | Psychosocial Evaluation ---
DATE OF SERVICE: 11/30/2017 The patient was seen and evaluated. The patient's chart reviewed. Covering for Dr. Parsons. Today on rggw-jn-mrtq evaluation, the patient presents suspicious, irritable, agitated. MENTAL STATUS EXAMINATION: Irritable, agitated, refusing interview. ASSESSMENT AND PLAN: The patient continues to present withdrawn, irritable, suspicious. We will continue all medications to reach a steady state. Medications were recently adjusted to target the patient's severe psychotic and disorganized state. JOB# [id number]
[2017-11-30] MEDS: Fenofibrate, Micronized 134 mg Cap PO SCH (20:54)
[2017-12-01] MEDS: Multivitamin Tab PO SCH (10:02)
[2017-12-01] MEDS: POLYETHYLENE GLYCOL 3350 17 GM PACK PO SCH ×2 (10:03→18:08)
[2017-12-01] MEDS: Vitamin B Complex w/Vitamin C Tab PO SCH (10:03)
[2017-12-01] MEDS: Pantoprazole 40 mg EC Tab PO SCH (10:03)
[2017-12-01] MEDS: Fenofibrate, Micronized 134 mg Cap PO SCH (20:28)
--- NOTE | 2017-12-02 00:52 | Progress Notes ---
DATE: 12/01/2017 SUBJECTIVE: The patient is currently in the hospital, brought in. He was throwing things, agitated. On [id number], the patient is confused, does not know where he is. He does not know why he is here, he states he lives in [place]. He states he lives with brother. Dr. Mims seeing the patient over the past few days, noting that he remained still symptomatic, withdrawn and disengaged, at times refusing interview, concerns for poor impulse control. Poor insight, fair sleep, eating with some prompting, still with some periods of agitation. ASSESSMENT: The patient remains symptomatic, still gets agitated, still depressed, refusing to step out for activity, meetings times, irritable in the morning, disheveled in appearance, is unclear what his discharge plan will be, it is unclear if he is going to be able to go home with brother. PLAN: We will continue to monitor. There are some episodes of confusion, ongoing concerns for safety in his behaviors. We will continue to monitor and follow up. Medications were reviewed including dosages and frequencies, he is currently on Zoloft, Abilify. JOB# [id number]
[2017-12-02] MEDS: Multivitamin Tab PO SCH (08:30)
[2017-12-02] MEDS: POLYETHYLENE GLYCOL 3350 17 GM PACK PO SCH ×2 (08:30→16:10)
[2017-12-02] MEDS: Vitamin B Complex w/Vitamin C Tab PO SCH (08:30)
[2017-12-02] MEDS: Pantoprazole 40 mg EC Tab PO SCH (08:30)
[2017-12-02] MEDS: Fenofibrate, Micronized 134 mg Cap PO SCH (21:14)
[2017-12-03] MEDS: POLYETHYLENE GLYCOL 3350 17 GM PACK PO SCH ×2 (08:16→16:21)
[2017-12-03] MEDS: Multivitamin Tab PO SCH (08:17)
[2017-12-03] MEDS: Pantoprazole 40 mg EC Tab PO SCH (08:17)
[2017-12-03] MEDS: Vitamin B Complex w/Vitamin C Tab PO SCH (08:17)
--- NOTE | 2017-12-03 16:28 | Progress Notes ---
DATE: SUBJECTIVE: Chart reviewed and the patient interviewed. Also discussed the patient's condition with the staff and reviewed records and labs. The patient is still guarded and withdrawn. The patient also does not want to talk to me today and wants to still being paranoid. The patient also is still restless and is still angry. Otherwise, the patient is cooperative with treatment and is compliant with taking his medications with no side effects of medications. ASSESSMENT: The patient is still agitated and confused. TREATMENT PLAN: Continue to monitor his behavior and condition closely. The patient also continued to take Abilify and the dose adjusted to 10 mg every day and continued to take Zoloft in a dose of 100 mg every day. Also, working with caser in regard to discharge plans and placement issue. JOB# [id number]
[2017-12-03] MEDS: Fenofibrate, Micronized 134 mg Cap PO SCH (21:02)
[2017-12-04] MEDS: POLYETHYLENE GLYCOL 3350 17 GM PACK PO SCH ×2 (08:33→16:14)
[2017-12-04] MEDS: Vitamin B Complex w/Vitamin C Tab PO SCH (08:34)
[2017-12-04] MEDS: Multivitamin Tab PO SCH (08:34)
[2017-12-04] MEDS: Pantoprazole 40 mg EC Tab PO SCH (08:35)
--- NOTE | 2017-12-04 11:44 | Progress Notes ---
DATE: 12/04/[address] Parsons. Case was discussed with staff of the patient and reviewed records. This is a well-known case to me. I have seen him before covering for Dr. Parsons. The patient continues to be confused and continues to have poor insight. Continues to be easily agitated, confused, unpredictable and impulsive. No side effects with the medication, no sedation, no nausea, no extrapyramidal symptoms with episodes of being restless and anger outburst. After Dr. Parsons increased his Abilify to 10 mg a day and Zoloft also at 100 mg daily and we will continue outpatient group therapy, milieu therapy, adjust medication as needed. JOB# [id number]
--- NOTE | 2017-12-04 11:53 | Discharge Summary ---
DATE OF DISCHARGE: 12/03/2017 DATE OF DISCHARGE: 12/03/2017. FINAL DIAGNOSIS AND PRIMARY DIAGNOSIS: Unspecified psychosis. MEDICAL DIAGNOSES 1. Seizure disorder. 2. Chronic obstructive pulmonary disease. 3. Hypertension. REASON FOR HOSPITALIZATION: The patient was admitted to the hospital from [facility] because of increased agitation and irritability. The patient was irritable and aggressive with the staff and was not able to follow any of directions in the skilled nursing and sent to the hospital. HOSPITAL COURSE: The patient continued to be irritable and agitated. The patient ____ continues to be in irritable and angry mood and needs lots of redirections. He also is easily agitated. The patient was started on Abilify and dose of 10 mg every day. He also continued to take Zoloft 100 mg everyday. The patient continues to be in angry and in irritable mood. Also, was easily agitated, but gradually the patient's affect was brighter, especially when Abilify increased to 10 mg every day. The patient was less agitated and less irritable. Interactive both with peers and with others. The patient also had no side effects of Seroquel, had no side effects of Abilify or Zoloft and the patient was accepted back to [facility] and the patient was discharged there. PHYSICAL EXAMINATION: Same as above and the patient had no major medical problems while in the hospital. AFTER DISCHARGE PLANS: The patient discharged from the hospital and went back to [facility] with plan to follow him up there. EXPECTED OUTCOME AFTER DISCHARGE: Fair if the patient continued to take his psychotropic medications and follow up with discharge plans. [facility]# [id number]
--- NOTE | 2017-12-04 14:54 | Progress Notes ---
DATE: 12/03/2017 Chart reviewed and the patient interviewed. Also discussed the patient's condition with the staff and reviewed records and labs. The patient continued to be agitated but less than before. We will discharge the patient today and will dictate discharge summary. JOB# [id number]
[2017-12-04] MEDS: Fenofibrate, Micronized 134 mg Cap PO SCH (20:14)
[2017-12-05] MEDS: Vitamin B Complex w/Vitamin C Tab PO SCH (09:55)
[2017-12-05] MEDS: Multivitamin Tab PO SCH (09:55)
[2017-12-05] MEDS: POLYETHYLENE GLYCOL 3350 17 GM PACK PO SCH ×2 (09:55→17:59)
[2017-12-05] MEDS: Pantoprazole 40 mg EC Tab PO SCH (09:55)
--- NOTE | 2017-12-05 19:21 | Progress Notes ---
DATE: 12/05/2017 SUBJECTIVE: The patient is currently in the hospital. The patient was unruly, at a group home, throwing things, agitated, aggressive. On [id number], the patient is calm, asking when he is going to leave. He is mumbling on exam, difficult to understand. Noted to still be easily agitated, impulsive, unpredictable, still with outbursts, not saying anything more to me than "When do I leave." Staff noting that he slept for about 5 hours, pacing, wandering throughout the night, pacing the hallways, orientation, selectively mute still, somewhat suspicious. Medications were reviewed including dosages and frequencies. ASSESSMENT: The patient remains symptomatic, not safe for a lower level of care. Continue Rhonda Chavez. JOB# [id number]
[2017-12-05] MEDS: Fenofibrate, Micronized 134 mg Cap PO SCH (20:44)
--- NOTE | 2017-12-06 09:28 | Progress Notes ---
DATE: 12/06/2017 SUBJECTIVE: The patient in the hospital had been unruly, agitated, aggressive. On [id number], the patient remains impoverished on exam. States he wants to leave, but does not know where he is going to go. Staff noting some confusion noted, but seemingly calmer. The patient did not sleep very well about 5 hours, restless, and pacing episodes; however, he has been redirectable, still suspicious mostly keeps to himself, but no agitation, no fighting behaviors. Currently on Abilify and Zoloft for example, no side effects noted. ASSESSMENT: The patient remains symptomatic, still mostly withdrawn to himself, bouts of confusion. PLAN: We will continue to monitor. We will continue to adjust and titrate medications. The patient to follow up with Dr. Parsons in the morning. JOB# [id number]
[2017-12-06] MEDS: Pantoprazole 40 mg EC Tab PO SCH (09:54)
[2017-12-06] MEDS: Vitamin B Complex w/Vitamin C Tab PO SCH (09:54)
[2017-12-06] MEDS: Multivitamin Tab PO SCH (09:54)
[2017-12-06] MEDS: POLYETHYLENE GLYCOL 3350 17 GM PACK PO SCH ×2 (09:57→17:23)
[2017-12-06] MEDS: Fenofibrate, Micronized 134 mg Cap PO SCH (20:00)
[2017-12-07] MEDS: POLYETHYLENE GLYCOL 3350 17 GM PACK PO SCH ×2 (08:51→17:10)
[2017-12-07] MEDS: Vitamin B Complex w/Vitamin C Tab PO SCH (08:51)
[2017-12-07] MEDS: Multivitamin Tab PO SCH (08:51)
[2017-12-07] MEDS: Pantoprazole 40 mg EC Tab PO SCH (08:51)
[2017-12-07] MEDS: Fenofibrate, Micronized 134 mg Cap PO SCH (21:58)
[2017-12-08] MEDS: Multivitamin Tab PO SCH (09:00)
[2017-12-08] MEDS: Vitamin B Complex w/Vitamin C Tab PO SCH (09:01)
[2017-12-08] MEDS: POLYETHYLENE GLYCOL 3350 17 GM PACK PO SCH ×2 (09:02→17:12)
[2017-12-08] MEDS: Pantoprazole 40 mg EC Tab PO SCH (09:02)
--- NOTE | 2017-12-08 10:20 | Progress Notes ---
DATE: 12/07/2017 SUBJECTIVE: Chart reviewed and the patient interviewed. Also discussed the patient's condition with the staff and reviewed records and labs. The patient remains in a depressed mood and he is still withdrawn. The patient also at times is intrusive to others and he is going into other patients rooms and taking their belongings. The patient also needs lots of redirections and the patient is selective in answering questions. Also, he is still at times agitated. Otherwise, the patient is compliant with taking his medications with no side effects of medications. ASSESSMENT: The patient is still confused and paranoid. TREATMENT PLAN: Continue to monitor his behavior and his condition closely. Also, continue adjusting psychotropic medications and we will continue to followup. Also, casework manager is still trying to find placement for the patient and working on discharge plans and placement issue. JOB# [id number]
[2017-12-08] MEDS: Fenofibrate, Micronized 134 mg Cap PO SCH (20:25)
--- NOTE | 2017-12-09 04:27 | Progress Notes ---
DATE: 12/08/2017 SUBJECTIVE: Chart reviewed and the patient interviewed. Also, discussed the patient's condition with the staff and reviewed records and labs. The patient is still in the hospital and he was supposed to be discharged a few days ago, but for some unknown reason the patient is still in the hospital. It seems that placement is still an issue. The patient also is still guarded and still has episodes of pacing, but less than before. Also, decreased agitation and decreased aggressive behavior. He still needs redirections. The patient also is following directions and he is compliant with taking his medications with no side effects of medications. ASSESSMENT: The patient is still pending discharge to [facility]. PLAN: Continue Abilify and Zoloft and continue to monitor his behavior and his condition closely. Also, continue to work with case checker in regard to discharge plans and placement issue. JOB# [id number]
[2017-12-09] MEDS: Pantoprazole 40 mg EC Tab PO SCH (08:18)
[2017-12-09] MEDS: Multivitamin Tab PO SCH (08:18)
[2017-12-09] MEDS: POLYETHYLENE GLYCOL 3350 17 GM PACK PO SCH ×2 (08:18→16:30)
[2017-12-09] MEDS: Vitamin B Complex w/Vitamin C Tab PO SCH (08:19)
[2017-12-09] MEDS: Fenofibrate, Micronized 134 mg Cap PO SCH (21:10)
--- NOTE | 2017-12-10 07:02 | Progress Notes ---
DATE: SUBJECTIVE: The patient is lying in the bed. The patient does not provide meaningful history. PHYSICAL EXAMINATION: VITAL SIGNS: See nurse's note. HEENT: No facial asymmetry. NECK: Supple, no JVD. HEART: Regular. CHEST AND LUNG: Equal in expansion. No wheezing, no crackles. ABDOMEN: Soft. EXTREMITIES: No edema. CLINICAL IMPRESSION: 1. Hypertension. 2. Hyperlipidemia. 3. Gastroesophageal reflux disease. 4. Seizure disorder. 5. Psychotic disorder. 6. Chronic obstructive pulmonary disease. PLAN: 1. Antihypertensive medicine. 2. Statins. 3. Antireflux measures. 4. Seizure medication. 5. Seizure precaution. 6. General nursing care. 7. Care plan reviewed and discussed with staff. JOB# [id number]
--- NOTE | 2017-12-10 09:16 | Progress Notes ---
DATE: 12/09/2017 PSYCHIATRIC PROGRESS NOTE SUBJECTIVE: Chart reviewed and the patient interviewed. Also discussed the patient's condition with the staff and reviewed records and labs. The patient is still unpredictable and he is still wandering around the unit and pacing up and down. The patient also has still poor hygiene and refusing to take shower. The patient also is still at times talking to himself. He needs lots of redirections. The patient also at times takes other people items including food and puffs. Otherwise, the patient continued to comply with taking his medications with no side effects of medications. ASSESSMENT: The patient is still agitated and psychotic. TREATMENT PLAN: Continue to monitor his behavior and his condition closely. Also, we will increase Abilify to 20 mg everyday and we will continue to follow up with his behavior closely. Also working on placement issue and so far no place accepting the patient. JOB# [id number]
[2017-12-10] MEDS: Multivitamin Tab PO SCH (09:20)
[2017-12-10] MEDS: Pantoprazole 40 mg EC Tab PO SCH (09:20)
[2017-12-10] MEDS: Vitamin B Complex w/Vitamin C Tab PO SCH (09:20)
[2017-12-10] MEDS: POLYETHYLENE GLYCOL 3350 17 GM PACK PO SCH ×2 (09:24→16:45)
--- NOTE | 2017-12-11 02:31 | Progress Notes ---
DATE: SUBJECTIVE: Chart reviewed and the patient interviewed. Also discussed the patient's condition with the staff and reviewed the records and labs. The patient is still argumentative and is still wandering around the unit in angry and irritable mood. Yesterday, the patient's mother came into the hospital and brought him some food and the patient was angry and irritable and he was almost abusive to his mother according to the staff. He also is still restless and he is still disheveled and difficulty with his hygiene. Otherwise, the patient is compliant with taking his medications with no side effects of medications. I discussed with the sports administrator of the [address] the patient's condition yesterday and they will not able to take him because he has no remaining hospital days. Because of that dependency case manager have difficulty finding placement for the patient. TREATMENT PLAN: We will continue close observation of his condition and we will continue looking for placement for the patient and followup. JOB# [id number]
--- NOTE | 2017-12-11 17:29 | Discharge Summary ---
DATE OF DISCHARGE: 12/10/2017 PATIENT'S AGE: 57. SEX: Male. PHYSICIAN: Prieto Parsons M.D., M.P.H. FINAL DIAGNOSIS/PRIMARY DIAGNOSIS: Unspecified psychosis. SECONDARY DIAGNOSES: Seizure disorder. Chronic obstructive pulmonary disease. Hypertension. REASON FOR HOSPITALIZATION: The patient was admitted to the hospital from [facility] because of increased agitation and irritability and aggressive behavior. HOSPITAL COURSE: The patient continued to be agitated and restless and in irritable mood. The patient also was easily agitated. The patient also is having difficulty following directions. The patient was started on Abilify and dose fluctuated, still it was 2.5 mg in the morning and it is adjusted to 20 mg every day. Gradually, the patient's affect was brighter. The patient also continued to take Clozaril in a dose of 400 mg every day. The patient was not aggressive or suicidal. Placement was an issue and finally the patient was accepted in a shelter. Physical examination of the patient was basically as mentioned under final diagnosis. AFTER DISCHARGE PLANS: The patient discharged from the hospital and shelter with plans to follow up there. EXPECTED OUTCOME AFTER DISCHARGE: Fair if the patient continued to take psychotropic medications and follow up with discharge plans. JOB# [id number]
== END 2017-12-10 18:30 | DRG 885 ==
LOC: ER 18:26 → GERO 22:12
PROVIDERS: ADMIT Psychiatry & Neurology Psychiatry; ATTEND Psychiatry & Neurology Psychiatry
DX: F29 Unspecified psychosis not due to a substance or known physiological condition (principal); F03.91 Unspecified dementia, unspecified severity, with behavioral disturbance; I10 Essential (primary) hypertension; E78.5 Hyperlipidemia, unspecified; K21.9 Gastro-esophageal reflux disease without esophagitis; G40.909 Epilepsy, unspecified, not intractable, without status epilepticus; M19.90 Unspecified osteoarthritis, unspecified site; F17.210 Nicotine dependence, cigarettes, uncomplicated; J44.9 Chronic obstructive pulmonary disease, unspecified; Z88.2 Allergy status to sulfonamides; Z88.8 Allergy status to other drugs, medicaments and biological substances; Z82.49 Family history of ischemic heart disease and other diseases of the circulatory system
CPT/HCPCS: 36415-UA; 80053-TC; 80061-TC; 83036-90; 84443-TC; 85025-TC; 86592-TC; 93005; Z7610